=== PATIENT | female | born 1930 | race Two or more races ===

== ENCOUNTER → 2018-05-20 | Outpatient (CLI) | payer MEDICARE, MEDICAID ==
[2018-05-20 10:44] LABS: Basophils # (auto) 0 uL; Basophils % (auto) 0.5 % (0.0-2.0); Eosinophils # (auto) 0 uL; Eosinophils % (auto) 0.4 % (0.0-7.0); Hematocrit 31.7 % (36.0-46.0); Hemoglobin 10.4 g/dL (12.2-16.2); Lymphocytes # (auto) 4.4 uL; Lymphocytes % (auto) 49.1 % (10.0-50.0); Mean Corpuscular Hgb Conc. 32.9 g/dL (32.0-36.0); Mean Corpuscular Volume 88.2 fL (80.0-100.0); Monocytes # (auto) 0.5 uL; Monocytes % (auto) 5.8 % (0.0-12.0); Neutrophils % (auto) 44.2 % (37.0-80.0); Platelet Count (auto) 216 10^3/uL (140-450); Red Blood Cells 3.59 10^6/uL (4.0-5.20); Red Cell Distribution Width 13.9 % (11.8-14.3)
[2018-05-20 10:55] LABS: Urine Bacteria NONE SEEN /hpf (None Seen); Urine Blood 2+ /uL (Negative); Urine Specific Gravity 1.008 (1.001-1.035); Urine WBC 36 /hpf (0 - 5); Urine WBC Clumps PRESENT /hpf (None Seen)
[2018-05-20 11:07] LABS: INR 0.93 (0.9-1.15); Partial Thromboplastin Time 26.9 sec (23.78-33.04)
[2018-05-20 11:16] LABS: Albumin 3.7 g/dL (3.4-5.0); BUN/Creatinine Ratio 39.2; Calcium 8.8 mg/dL (8.5-10.1); Potassium 4.4 mmol/L (3.5-5.1)
[2018-05-20 11:20] LABS: Bilirubin, Total 0.4 mg/dL (0.2-1.0); Total Protein 8.3 g/dL (6.4-8.2)
[2018-05-20 20:09] LABS: Free T4 (Free Thyroxine) 0.97 ng/dL (0.89-1.76)
[2018-05-20 20:52] LABS: Folate (Folic Acid) 18.09 ng/mL (5.38-24)
== END | disposition home or self-care (01) ==
LOC: LAB 10:11
PROVIDERS: ATTEND Internal Medicine
DX: I12.9 Hypertensive chronic kidney disease with stage 1 through stage 4 chronic kidney disease, or unspecified chronic kidney disease (principal); N18.4 Chronic kidney disease, stage 4 (severe); Z79.899 Other long term (current) drug therapy
CPT/HCPCS: 36415; 80053; 80061; 81001; 82607; 82746; 83036; 84439; 84443; 85025; 85610; 85730

== ENCOUNTER → 2018-06-27 | Outpatient (CLI) | payer MEDICARE, MEDICAID ==
[2018-06-27 09:41] LABS: Hematocrit 31.3 % (36.0-46.0); Hemoglobin 10.3 g/dL (12.2-16.2); Mean Corpuscular Hemoglobin 28.8 pg (28.0-32.0); Mean Corpuscular Hgb Conc. 32.8 g/dL (32.0-36.0); Mean Corpuscular Volume 87.6 fL (80.0-100.0); Platelet Count (auto) 261 10^3/uL (140-450); Red Blood Cells 3.57 10^6/uL (4.0-5.20); Red Cell Distribution Width 14.2 % (11.8-14.3); White Blood Cell 9.7 10^3/uL (4.4-10.8)
[2018-06-27 09:51] LABS: Urine Bacteria NONE SEEN /hpf (None Seen); Urine Blood 2+ /uL (Negative); Urine Specific Gravity 1.009 (1.001-1.035); Urine WBC 119 /hpf (0 - 5)
[2018-06-27 09:58] LABS: Albumin 3.6 g/dL (3.4-5.0); BUN/Creatinine Ratio 26.3; Calcium 8.7 mg/dL (8.5-10.1); Potassium 3.7 mmol/L (3.5-5.1); Uric Acid 6.4 mg/dL (2.6-6.0)
[2018-06-27 10:16] LABS: Protein, Urine 8.7 mg/dL (0.0-11.9)
[2018-06-27 11:09] LABS: Basophils # (auto) 0 uL; Basophils % (auto) 0.5 % (0.0-2.0); Eosinophils # (auto) 0.1 uL; Eosinophils % (auto) 0.8 % (0.0-7.0); Lymphocytes # (auto) 3.8 uL; Lymphocytes % (auto) 39.4 % (10.0-50.0); Monocytes # (auto) 0.7 uL; Monocytes % (auto) 7.3 % (0.0-12.0)
== END | disposition home or self-care (01) ==
LOC: LAB 08:06
PROVIDERS: ATTEND Internal Medicine
DX: R80.9 Proteinuria, unspecified (principal); E55.9 Vitamin D deficiency, unspecified; I12.9 Hypertensive chronic kidney disease with stage 1 through stage 4 chronic kidney disease, or unspecified chronic kidney disease; N18.4 Chronic kidney disease, stage 4 (severe)
CPT/HCPCS: 36415; 80048; 80069; 81001; 82306; 82570; 84156; 84550; 85007; 85025; 85027

== ENCOUNTER 2018-07-14 10:58 | Emergency (ER) | payer MEDICARE, MEDICAID ==
[~2018-07-14] VITALS: Ht 149.9 cm; Wt 37.2 kg
[2018-07-14 12:16] VITALS: BP 122/64
== END 2018-07-14 12:53 | disposition home or self-care (01) ==
LOC: EDBD 10:58 → ER 10:58
DX: R53.1 Weakness (principal)
CPT/HCPCS: 93005

== ENCOUNTER 2018-07-22 21:56 | Inpatient (IN) | payer MEDICARE, MEDICAID | END 2018-08-01 15:30 | disposition home or self-care (01) | LOC: OVERFLOW 07-23 02:59 → ER 21:56 → WEST WING 07-23 03:47 | PROC: 0T788DZ Dilation of Bilateral Ureters with Intraluminal Device, Via Natural or Artificial Opening Endoscopic (ICD-10-PCS; principal; 2018-07-31 12:57) | DX: N13.6 Pyonephrosis (principal); R64 Cachexia; E87.1 Hypo-osmolality and hyponatremia; N30.90 Cystitis, unspecified without hematuria; N17.0 Acute kidney failure with tubular necrosis; N18.4 Chronic kidney disease, stage 4 (severe); F03.90 Unspecified dementia, unspecified severity, without behavioral disturbance, psychotic disturbance, mood disturbance, and anxiety; E03.9 Hypothyroidism, unspecified; E86.0 Dehydration; I71.4 Abdominal aortic aneurysm, without rupture; Y84.6 Urinary catheterization as the cause of abnormal reaction of the patient, or of later complication, without mention of misadventure at the time of the procedure ==

== ENCOUNTER → 2018-08-21 | Outpatient (CLI) | payer MEDICARE, MEDICAID ==
[~2018-08-21] MED LIST: LEVO25TA6 PO; MEMA1TAB2 PO; NITR-52 PO
[2018-08-21 12:05] LABS: BUN/Creatinine Ratio 27.5; Calcium 8.9 mg/dL (8.5-10.1); Potassium 3.4 mmol/L (3.5-5.1)
== END | disposition home or self-care (01) ==
LOC: LAB 11:17
PROVIDERS: ATTEND Urology
DX: N13.2 Hydronephrosis with renal and ureteral calculous obstruction (principal)
CPT/HCPCS: 36415; 80048

== ENCOUNTER → 2018-09-09 | Outpatient (CLI) | payer MEDICARE, MEDICAID ==
[2018-09-09 08:16] LABS: Basophils # (auto) 0.1 uL; Basophils % (auto) 0.7 % (0.0-2.0); Eosinophils # (auto) 0.1 uL; Eosinophils % (auto) 1.7 % (0.0-7.0); Hemoglobin 9.6 g/dL (12.2-16.2); Lymphocytes # (auto) 4.6 uL; Lymphocytes % (auto) 53.3 % (10.0-50.0); Mean Corpuscular Hemoglobin 29.6 pg (28.0-32.0); Mean Corpuscular Volume 89.7 fL (80.0-100.0); Monocytes # (auto) 0.6 uL; Monocytes % (auto) 6.9 % (0.0-12.0); Neutrophils # (auto) 3.2 uL; Neutrophils % (auto) 37.4 % (37.0-80.0); Platelet Count (auto) 217 10^3/uL (140-450); Red Blood Cells 3.23 10^6/uL (4.0-5.20); Red Cell Distribution Width 15.8 % (11.8-14.3); White Blood Cell 8.6 10^3/uL (4.4-10.8)
[2018-09-09 08:50] LABS: Urine Blood 1+ /uL (Negative); Urine Specific Gravity 1.013 (1.001-1.035)
[2018-09-09 09:13] LABS: Creatinine, Urine 42 mg/dL (30.0-125.0); Protein, Urine 99.3 mg/dL (0.0-11.9)
[2018-09-09 09:41] LABS: Albumin 3.5 g/dL (3.4-5.0); Calcium 9.8 mg/dL (8.5-10.1); Phosphorus 3.9 mg/dL (2.5-4.90); Potassium 3.7 mmol/L (3.5-5.1)
== END | disposition home or self-care (01) ==
LOC: LAB 07:45
PROVIDERS: ATTEND Internal Medicine Nephrology
DX: E55.9 Vitamin D deficiency, unspecified (principal); M10.9 Gout, unspecified; N39.0 Urinary tract infection, site not specified; N18.3 Chronic kidney disease, stage 3 (moderate); D63.1 Anemia in chronic kidney disease; E21.3 Hyperparathyroidism, unspecified
CPT/HCPCS: 36415; 80069; 81003; 82306; 82570; 83970; 84156; 84550; 85025

== ENCOUNTER 2018-10-13 16:11 | Emergency (ER) | payer MEDICARE, MEDICAID ==
[~2018-10-13] VITALS: Ht 127 cm; Wt 36.7 kg
[2018-10-13 16:31] VITALS: BP 111/62
[2018-10-13 18:00] LABS: Basophils # (auto) 0 uL; Basophils % (auto) 0.4 % (0.0-2.0); Eosinophils # (auto) 0.1 uL; Eosinophils % (auto) 0.8 % (0.0-7.0); Hematocrit 27.9 % (36.0-46.0); Hemoglobin 9.3 g/dL (12.2-16.2); Lymphocytes # (auto) 4.2 uL; Lymphocytes % (auto) 52.3 % (10.0-50.0); Mean Corpuscular Hemoglobin 30.3 pg (28.0-32.0); Mean Corpuscular Hgb Conc. 33.5 g/dL (32.0-36.0); Mean Corpuscular Volume 90.4 fL (80.0-100.0); Monocytes # (auto) 0.6 uL; Monocytes % (auto) 7.3 % (0.0-12.0); Neutrophils # (auto) 3.1 uL; Neutrophils % (auto) 39.2 % (37.0-80.0); Platelet Count (auto) 231 10^3/uL (140-450); Red Blood Cells 3.08 10^6/uL (4.0-5.20); Red Cell Distribution Width 14.1 % (11.8-14.3)
[2018-10-13 18:07] LABS: Albumin 3.1 g/dL (3.4-5.0); BUN/Creatinine Ratio 20.2; Calcium 8.8 mg/dL (8.5-10.1); Potassium 3.8 mmol/L (3.5-5.1)
[2018-10-13 18:10] LABS: Bilirubin, Total 0.4 mg/dL (0.2-1.0); Total Protein 8.2 g/dL (6.4-8.2)
== END 2018-10-13 19:25 | disposition left against medical advice (07) ==
LOC: ER 16:22
DX: N18.9 Chronic kidney disease, unspecified (principal); Z79.899 Other long term (current) drug therapy
CPT/HCPCS: 36415; 74176; 80053; 83735; 85025; 93005; 94761

== ENCOUNTER → 2018-10-13 | Outpatient (CLI) | payer MEDICARE, MEDICAID | END | disposition home or self-care (01) | LOC: LAB 15:51 | PROVIDERS: ATTEND Urology | DX: N13.2 Hydronephrosis with renal and ureteral calculous obstruction (principal) | CPT/HCPCS: 36415; 84132 ==

== ENCOUNTER → 2018-10-14 | Outpatient (CLI) | payer MEDICARE, MEDICAID ==
[~2018-10-14] MED LIST changes: +FUROSEMIDE 40 MG/4 ML VIAL IV ONE; +FUROSEMIDE 40 MG/4 ML VIAL ONE
== END | disposition home or self-care (01) ==
LOC: XY 08:28
PROVIDERS: ATTEND Urology
DX: N13.2 Hydronephrosis with renal and ureteral calculous obstruction (principal)
CPT/HCPCS: 78707; A9562; J1940

== ENCOUNTER 2018-11-27 07:21 | Day surgery (SDC) | payer MEDICARE, MEDICAID ==
[2018-11-25 12:33] LABS: INR < 0.93 (0.9-1.15); Partial Thromboplastin Time 26.5 sec (23.64-32.05)
[2018-11-25 12:34] LABS: Basophils # (auto) 0 uL; Basophils % (auto) 0.4 % (0.0-2.0); Eosinophils # (auto) 0 uL; Eosinophils % (auto) 0.4 % (0.0-7.0); Hematocrit 27.9 % (36.0-46.0); Hemoglobin 9.3 g/dL (12.2-16.2); Lymphocytes # (auto) 3.8 uL; Lymphocytes % (auto) 51.5 % (10.0-50.0); Mean Corpuscular Hemoglobin 30.2 pg (28.0-32.0); Mean Corpuscular Hgb Conc. 33.3 g/dL (32.0-36.0); Mean Corpuscular Volume 90.6 fL (80.0-100.0); Monocytes # (auto) 0.5 uL; Monocytes % (auto) 6.8 % (0.0-12.0); Neutrophils % (auto) 40.9 % (37.0-80.0); Platelet Count (auto) 222 10^3/uL (140-450); Red Blood Cells 3.07 10^6/uL (4.0-5.20); Red Cell Distribution Width 13.9 % (11.8-14.3); White Blood Cell 7.3 10^3/uL (4.4-10.8)
[2018-11-25 12:49] LABS: Urine Bacteria NONE SEEN /hpf (None Seen); Urine Blood 2+ /uL (Negative); Urine Specific Gravity 1.013 (1.001-1.035); Urine WBC 870 /hpf (0 - 5); Urine WBC Clumps PRESENT /hpf (None Seen)
[2018-11-25 13:10] LABS: Albumin 3.2 g/dL (3.4-5.0); Calcium 8.8 mg/dL (8.5-10.1)
[2018-11-25 13:14] LABS: BUN/Creatinine Ratio 19.8; Bilirubin, Total 0.3 mg/dL (0.2-1.0); Total Protein 8.1 g/dL (6.4-8.2)
[~2018-11-27] VITALS: Ht 144.8 cm; Wt 36.3 kg
[~2018-11-27 07:21] MED LIST changes: +DONE5TAB31 PO; -FUROSEMIDE 40 MG/4 ML VIAL IV ONE; -FUROSEMIDE 40 MG/4 ML VIAL ONE; -NITR-52 PO
[2018-11-27] MEDS ORDERED: CIPROFLOXACIN 400MG/200ML 200 ML IV ONE (09:01)
[2018-11-27] MEDS ORDERED: IOHEXOL 300 MG/ML 100ML BOTTLE IJ ONE (09:37)
[2018-11-27] MEDS ORDERED: LIDOCAINE HCL 2% TOP JELLY 5ML TOP ONE (09:55)
[2018-11-27] MEDS ORDERED: LIDOCAINE 2% (LOCAL ANESTH.) PF 5ml SDV ONE (09:55)
[2018-11-27] MEDS ORDERED: ETOMIDATE (2MG/ML) 20ML VIAL IV ONE (09:56)
[2018-11-27] MEDS ORDERED: fentaNYL CITRATE 100 MCG/2 ML VL ONE (10:11)
[2018-11-27] MEDS ORDERED: METOCLOPRAMIDE HCL 5MG/ml INJ 2ml VIAL ONE (10:14)
[2018-11-27] MEDS ORDERED: ONDANSETRON HCL 4 MG/2 ML VIAL IV PRN (10:15)
[2018-11-27] MEDS ORDERED: HYDROmorphone HCL 2 MG/ML VL IV PRN (10:15)
[2018-11-27] MEDS ORDERED: NALOXONE HCL 0.4 MG/ML VIAL IV PRN (10:15)
[2018-11-27] MEDS ORDERED: SODIUM CHLORIDE LOCK 10 ML ONE (10:28)
[2018-11-27] MEDS ORDERED: ePHEDrine SULFATE 50 MG/ML AMP ONE (10:28)
[2018-11-27 11:59] VITALS: BP 126/63
== END 2018-11-27 12:19 | disposition home or self-care (01) ==
LOC: SUR 07:21
PROVIDERS: ATTEND Urology
DX: N13.1 Hydronephrosis with ureteral stricture, not elsewhere classified (principal); K27.9 Peptic ulcer, site unspecified, unspecified as acute or chronic, without hemorrhage or perforation; I12.9 Hypertensive chronic kidney disease with stage 1 through stage 4 chronic kidney disease, or unspecified chronic kidney disease; N18.4 Chronic kidney disease, stage 4 (severe); D64.9 Anemia, unspecified; E07.9 Disorder of thyroid, unspecified; M19.90 Unspecified osteoarthritis, unspecified site; Z79.899 Other long term (current) drug therapy
CPT/HCPCS: 36415; 52332; 74018; 76001; 80053; 81001; 85025; 85610; 85730; C1769; C2617; J0744; J2001; J2765; J3010; J7030; Q9967

== ENCOUNTER 2018-11-30 19:23 | Emergency (ER) | payer MEDICARE, MEDICAID ==
[~2018-11-30] VITALS: Ht 149.9 cm; Wt 37.4 kg
[2018-11-30 20:07] VITALS: BP 135/73
[2018-11-30 20:21] LABS: Hematocrit 30.8 % (36.0-46.0); Hemoglobin 10.2 g/dL (12.2-16.2); Mean Corpuscular Hemoglobin 30.1 pg (28.0-32.0); Mean Corpuscular Volume 90.9 fL (80.0-100.0); Platelet Count (auto) 231 10^3/uL (140-450); Red Blood Cells 3.39 10^6/uL (4.0-5.20); Red Cell Distribution Width 13.8 % (11.8-14.3); White Blood Cell 10.7 10^3/uL (4.4-10.8)
[2018-11-30 20:30] LABS: Basophils % (manual) 0 (0.0-2.0); Blast Cells 0; Metamyelocytes % 0; Myelocytes % 0; Promyelocytes % 0
[2018-11-30 20:32] LABS: INR 0.93 (0.9-1.15); Partial Thromboplastin Time 25.9 sec (23.64-32.05)
[2018-11-30 20:53] LABS: Albumin 3.4 g/dL (3.4-5.0); Calcium 9.2 mg/dL (8.5-10.1)
[2018-11-30 20:58] LABS: BUN/Creatinine Ratio 17.5; Bilirubin, Total 0.3 mg/dL (0.2-1.0); Total Protein 8.5 g/dL (6.4-8.2)
[2018-11-30 21:12] LABS: Urine Bacteria FEW /hpf (None Seen); Urine Blood 1+ /uL (Negative); Urine Hyaline Cast FEW /lpf (0 - 2); Urine Specific Gravity 1.004 (1.001-1.035); Urine WBC 110 /hpf (0 - 5)
[2018-11-30 21:26] LABS: Band Neutrophils % (manual) 1; Eosinophils % (manual) 1 (0-7); Lymphocytes % (manual) 65 (10.0-50.0); Monocytes % (manual) 5 (0-12); Reactive Lymphocytes 2
== END 2018-11-30 21:12 | disposition left against medical advice (07) ==
LOC: ER 19:27
DX: R53.1 Weakness (principal); Z53.21 Procedure and treatment not carried out due to patient leaving prior to being seen by health care provider
CPT/HCPCS: 36415; 80053; 81001; 82962; 85007; 85027; 85610; 85730

== ENCOUNTER 2018-12-14 11:20 | Emergency (ER) | payer MEDICARE, MEDICAID ==
[~2018-12-14] VITALS: Ht 149.9 cm; Wt 36.3 kg
[2018-12-14 12:13] LABS: Basophils # (auto) 0 uL; Basophils % (auto) 0.5 % (0.0-2.0); Eosinophils # (auto) 0 uL; Eosinophils % (auto) 0.5 % (0.0-7.0); Hemoglobin 10.8 g/dL (12.2-16.2); Lymphocytes # (auto) 3.6 uL; Mean Corpuscular Hemoglobin 29.8 pg (28.0-32.0); Mean Corpuscular Hgb Conc. 33.8 g/dL (32.0-36.0); Mean Corpuscular Volume 88.4 fL (80.0-100.0); Monocytes # (auto) 0.4 uL; Monocytes % (auto) 5.6 % (0.0-12.0); Neutrophils # (auto) 3.3 uL; Neutrophils % (auto) 44.4 % (37.0-80.0); Nucleated Red Blood Cells % 0.1 %; Platelet Count (auto) 221 10^3/uL (140-450); Red Blood Cells 3.62 10^6/uL (4.0-5.20); Red Cell Distribution Width 13.9 % (11.8-14.3); White Blood Cell 7.4 10^3/uL (4.4-10.8)
[2018-12-14 12:15] LABS: Urine Amorphous Crystal FEW /hpf (None Seen); Urine Bacteria MOD /hpf (None Seen); Urine Blood 1+ /uL (Negative); Urine Specific Gravity 1.005 (1.001-1.035); Urine WBC 185 /hpf (0 - 5)
[2018-12-14 12:40] LABS: Alanine Aminotransferase 16 U/L (13-56); Albumin 3.6 g/dL (3.4-5.0); Anion Gap 7 (5-15); Aspartate Aminotransferase 20 U/L (15-37); BUN/Creatinine Ratio 23.1; Blood Urea Nitrogen 49 mg/dL (7-18); Calcium 9.2 mg/dL (8.5-10.1); Carbon Dioxide 25 mmol/L (21-32); Chloride 103 mmol/L (98-107); GFR African American 28 mL/min; GFR Non-African American 23 mL/min; Glucose 103 mg/dL (74-106); Potassium 3.1 mmol/L (3.5-5.1); Sodium 135 mmol/L (136-145)
[2018-12-14 12:45] LABS: Alkaline Phosphatase 76 U/L (45-117); Bilirubin, Total 0.4 mg/dL (0.2-1.0); Total Protein 8.8 g/dL (6.4-8.2)
[2018-12-14] MEDS ORDERED: POTASSIUM EFFERVESENT TAB 25 MEQ PO ONE (14:45)
[2018-12-14] MEDS ORDERED: cefTRIAXone 1GM/50ML D5W 50 ML IV ONE (14:45)
[2018-12-14 16:46] VITALS: BP 97/43
== END 2018-12-14 16:57 | disposition home or self-care (01) ==
LOC: ER 11:25
DX: N39.0 Urinary tract infection, site not specified (principal); I12.9 Hypertensive chronic kidney disease with stage 1 through stage 4 chronic kidney disease, or unspecified chronic kidney disease; N18.9 Chronic kidney disease, unspecified
CPT/HCPCS: 36415; 71045; 80053; 81001; 84484; 85025; 93005; 96365; 99284; J0696

== ENCOUNTER 2018-12-16 09:42 | Emergency (ER) | payer MEDICARE, MEDICAID ==
[~2018-12-16] VITALS: Ht 144.8 cm; Wt 36.3 kg
[2018-12-16] MEDS ORDERED: SODIUM CHLORIDE 0.9% 1,000 ML IV ONE (11:11)
[2018-12-16 12:47] LABS: Urine Bacteria FEW /hpf (None Seen); Urine Blood TRACE /uL (Negative); Urine Budding Yeast FEW /hpf (None Seen); Urine Specific Gravity 1.004 (1.001-1.035); Urine WBC 128 /hpf (0 - 5)
[2018-12-16 13:03] VITALS: BP 117/59
== END 2018-12-16 14:18 | disposition home or self-care (01) ==
LOC: ER 09:43
DX: F03.90 Unspecified dementia, unspecified severity, without behavioral disturbance, psychotic disturbance, mood disturbance, and anxiety (principal); N39.0 Urinary tract infection, site not specified; I12.9 Hypertensive chronic kidney disease with stage 1 through stage 4 chronic kidney disease, or unspecified chronic kidney disease; N18.9 Chronic kidney disease, unspecified; E07.9 Disorder of thyroid, unspecified; Z79.899 Other long term (current) drug therapy
CPT/HCPCS: 70450; 81001; 93005; 96360; 99284; J7030

== ENCOUNTER 2018-12-21 05:54 | Inpatient (IN) | payer MEDICARE, MEDICAID ==
[~2018-12-21] VITALS: Ht 139.7 cm; Wt 38.6 kg
[2018-12-21 06:42] LABS: Hematocrit 30.7 % (36.0-46.0); Hemoglobin 10.7 g/dL (12.2-16.2); Mean Corpuscular Hemoglobin 30.9 pg (28.0-32.0); Mean Corpuscular Hgb Conc. 34.7 g/dL (32.0-36.0); Mean Corpuscular Volume 88.9 fL (80.0-100.0); Platelet Count (auto) 187 10^3/uL (140-450); Red Blood Cells 3.45 10^6/uL (4.0-5.20); Red Cell Distribution Width 13.6 % (11.8-14.3); White Blood Cell 9.7 10^3/uL (4.4-10.8)
[2018-12-21 06:47] LABS: Basophils % (manual) 0 (0.0-2.0); Blast Cells 0; Metamyelocytes % 0; Myelocytes % 0; Promyelocytes % 0; Reactive Lymphocytes 0
[2018-12-21 07:04] LABS: Alanine Aminotransferase 12 U/L (13-56); Albumin 3.5 g/dL (3.4-5.0); Anion Gap 11 (5-15); BUN/Creatinine Ratio 19.6; Blood Urea Nitrogen 36 mg/dL (7-18); Calcium 8.7 mg/dL (8.5-10.1); Carbon Dioxide 21 mmol/L (21-32); Chloride 92 mmol/L (98-107); GFR African American 33 mL/min; GFR Non-African American 28 mL/min; Glucose 107 mg/dL (74-106); Magnesium 2.2 mg/dL (1.6-2.6); Potassium 4.1 mmol/L (3.5-5.1); Sodium 124 mmol/L (136-145)
[2018-12-21 07:16] LABS: Band Neutrophils % (manual) 3; Eosinophils % (manual) 2 (0-7); Lymphocytes % (manual) 53 (10.0-50.0); Monocytes % (manual) 17 (0-12)
[2018-12-21 07:17] LABS: Alkaline Phosphatase 79 U/L (45-117); Aspartate Aminotransferase 21 U/L (15-37); Bilirubin, Total 0.6 mg/dL (0.2-1.0); Total Protein 8.1 g/dL (6.4-8.2)
[2018-12-21 10:15] LABS: Urine Bacteria NONE SEEN /hpf (None Seen); Urine Blood Negative /uL (Negative); Urine Specific Gravity 1.004 (1.001-1.035); Urine WBC 17 /hpf (0 - 5)
[2018-12-21] MEDS: cefTRIAXone 1GM/50ML D5W 50 ML IV ONE ×2 (16:01→16:02)
[2018-12-21] MEDS: SODIUM CHLORIDE 0.9% 1,000 ML IV ONE ×2 (16:01→16:02)
[2018-12-21] MEDS ORDERED: ACETAMINOPHEN 500 MG TAB PO PRN (16:30)
[2018-12-21] MEDS ORDERED: ONDANSETRON HCL 4 MG/2 ML VIAL IV PRN (16:30)
[2018-12-21] MEDS ORDERED: MORPHINE SULF INJ 2 MG/ML SYRINGE 1ML IV PRN (16:30)
[2018-12-21] MEDS ORDERED: NITROGLYCERIN 0.4 MG SL TAB SL PRN (16:30)
[2018-12-21] MEDS ORDERED: TEMAZEPAM 15 MG CAP PO PRN (16:30)
[2018-12-21] MEDS ORDERED: traMADol HCL 50 MG TAB PO PRN (16:30)
[2018-12-21] MEDS: SODIUM CHLORIDE 0.9% 1,000 ML IV SCH (17:14)
--- NOTE | 2018-12-21 17:36 | NUR ---
Telemetry admit from ER [facility] admitted to Telemetry unit. Patient oriented to Dwayne Smalls, primary RN, unit, room, bed, and unit policies regarding patient care and visiting hours. Patient is Luxembourgish speaking. Patient now on continuous telemetry monitoring, tele box #6 and telemetry reading on arrival to unit is [id number]. Patient placed on bedside oxygen, weighed by bedscale and encouraged to call if they need something. All questions and concerns addressed, patient verbalized understanding.
[2018-12-21 17:56] VITALS: BP 140/77
[2018-12-21 18:00] VITALS: BP 140/77
--- NOTE | 2018-12-21 19:20 | NUR ---
Opening Shift Note Report received from day shift RN. Assumed care of patient. Patient awake and alert x4. No S/S of distress/SOB noted and patient denies pain at this time. Bed locked and left in the lowest position. Call light left within reach. Instructed on POC and to call for assist PRN, will continue to monitor for changes Q1hr and PRN.
[2018-12-21 22:00] VITALS: BP 120/66
[2018-12-22] MEDS: SODIUM CHLORIDE 0.9% 1,000 ML IV SCH ×2 (04:09→12:26)
[2018-12-22 04:42] VITALS: BP 113/72
[2018-12-22 06:12] LABS: Albumin 3.1 g/dL (3.4-5.0); BUN/Creatinine Ratio 18.2; Calcium 8.6 mg/dL (8.5-10.1); Potassium 4.3 mmol/L (3.5-5.1)
[2018-12-22 06:14] LABS: Bilirubin, Total 0.3 mg/dL (0.2-1.0); Total Protein 7.5 g/dL (6.4-8.2)
--- NOTE | 2018-12-22 07:35 | NUR ---
Opening Shift Note Assumed care of patient, awake and alert. No S/S of distress/SOB or pain.Bed in lowest position, breaks locked side rails up x2, call light with in reach. Instructed on POC and to call for assist PRN, will continue to monitor for changes Q1hr and PRN.
[2018-12-22 08:00] VITALS: BP 124/71
[2018-12-22 08:42] VITALS: BP 124/71
--- NOTE | 2018-12-22 09:00 | NUR ---
Family at bedside.
[2018-12-22] MEDS: PANTOPRAZOLE 40 MG TAB PO SCH (09:11)
[2018-12-22] MEDS: cefTRIAXone 1GM/50ML D5W 50 ML IV SCH (09:11)
[2018-12-22 14:00] VITALS: BP 120/62
[2018-12-22 17:29] VITALS: BP 125/65
--- NOTE | 2018-12-22 18:00 | NUR ---
Family at bedside, per daughter wants MD informed that patient takes Donepezil 5mg and Levothyroxine 25mcg and would like the medication continued at the hospital.
--- NOTE | 2018-12-22 19:30 | NUR ---
Opening Assumed care of patient, awake and alert. No S/S of distress/SOB or pain. Insructed on POC and to callfor assist PRN, will continue to monitor for changes Q1hr and PRN. Family at bedside. Fall and safety precautions in place. Call light within reach.
--- NOTE | 2018-12-22 20:40 | NUR ---
URINE SAMPLE Urine sample collected and sent to lab via bullet
[2018-12-22 21:39] VITALS: BP 148/80
[2018-12-23] MEDS: SODIUM CHLORIDE 0.9% 1,000 ML IV SCH ×3 (00:40→18:37)
[2018-12-23 05:39] VITALS: BP 145/76
--- NOTE | 2018-12-23 08:00 | NUR ---
RECEIVED PATIENT ALERT AND ORIENTED X4, DIVE[place] SPEAKING, HARD OF HEARING, NOT IN DISTRESS, CLEAR LS IN BILATERAL LUNG SOUNDS, RR=18 SAT=95, DEEP BREATHING AND COUGHING ENCOURAGED, DEMONSTRATED WELL, DENIED SOB AND CHEST PAIN AT THIS MOMENT, ABDOMEN SOFT WITH ACTIVE BS, LAST BM=12/22/18 REPORTED, TOLERATED BREAKFAST TRAY WELL, AMBULATED TO BR AND BACK TO BED, SKIN INTACT WARM TO TOUCH, MODERATE GENERALIZED WEAKNESS NOTED, RADIAL AND PEDAL PULSES PALPABLE, CAP REFILL<3 SECONDS, RESTING ON BED, DENIED PAIN, HEAD OF BED ELEVATED, BED ON LOWER POSITION, RAILS UP X2, CALL LIGHT ON REACH, PENDING UROLOGY CONSULT, WILL CONTINUE MONITORING.
[2018-12-23 09:00] VITALS: BP 128/59
[2018-12-23] MEDS: PANTOPRAZOLE 40 MG TAB PO SCH (09:37)
[2018-12-23] MEDS: cefTRIAXone 1GM/50ML D5W 50 ML IV SCH (09:37)
[2018-12-23 11:42] LABS: Basophils # (auto) 0 uL; Eosinophils # (auto) 0 uL; Hemoglobin 8.8 g/dL (12.2-16.2)
[2018-12-23 11:46] LABS: Basophils % (auto) 0.8 % (0.0-2.0); Eosinophils % (auto) 0.9 % (0.0-7.0); Hematocrit 25.8 % (36.0-46.0); Lymphocytes # (auto) 1.9 uL; Lymphocytes % (auto) 35.8 % (10.0-50.0); Mean Corpuscular Hemoglobin 31.2 pg (28.0-32.0); Mean Corpuscular Hgb Conc. 34.2 g/dL (32.0-36.0); Mean Corpuscular Volume 91.2 fL (80.0-100.0); Monocytes # (auto) 0.5 uL; Monocytes % (auto) 8.5 % (0.0-12.0); Neutrophils # (auto) 2.9 uL; Platelet Count (auto) 136 10^3/uL (140-450); Red Blood Cells 2.83 10^6/uL (4.0-5.20); Red Cell Distribution Width 13.7 % (11.8-14.3); White Blood Cell 5.3 10^3/uL (4.4-10.8)
--- NOTE | 2018-12-23 11:56 | NUR ---
OUT OF BED AND AMBULATED USING WALKER AROUND THE UNIT X2 WITH THE FAMILY, BACK TO THE BED, TOLERATED WELL, RESTING ON BED AT THIS TIME, WILL CONTINUE MONITORING.
[2018-12-23 12:15] LABS: BUN/Creatinine Ratio 16.6; Calcium 7.9 mg/dL (8.5-10.1); Potassium 3.7 mmol/L (3.5-5.1)
[2018-12-23 13:00] VITALS: BP 120/67
--- NOTE | 2018-12-23 14:30 | NUR ---
assessment re: ss consult Patient is a 88 year old female who is alert and oriented and Mozambican speaking. Patients daughter Gloria translated for us. Prior to admission patient lived home with her daughter Gloria and functioned with assistance. Per patient she will return home to her prior living arrangements post discharge and Gloria will transport her home. Per patient Gloria assist her at home with bathing, cleaning, errands and cooking. Patient informed me she feels safe returning home on discharge. Patient and Gloria informed me patient is on service with [employer]. Patient and Gloria informed me they want to resume on discharge with [employer] for PT, vitals, and med management. I informed Gloria patient has a ss consult for caregiver fatigue. Gloria informed me she is fine and patient is well taken care of. I informed patient she has a right to speak to a social work manager regarding all care. I informed patient she has a right to participate in any and all discharge planning. Patient is aware of visiting hours on the hospital floor. I informed patient she has a right to privacy. Patient does not have a POA and advanced directive. I have offered patient information on POA and advanced directives. I informed the patient the advantages and benefits of having an Advanced Directive. Patient verbalized understanding and agreed to discharge plan. Addendum: 12/23/18 at 1434 by Flor Johnson Amended: Links added.
--- NOTE | 2018-12-23 16:00 | NUR ---
PT DECLINED P.T. BECAUSE OF A HEADACHE.
[2018-12-23 17:00] VITALS: BP 137/77
--- NOTE | 2018-12-23 19:12 | NUR ---
NOT IN DISTRESS, DENIED PAIN, DAUGHTER AT BED SIDE, TOLERATED DINNER TRAY 100%, RESTING ON BED, REPORT WAS GIVEN TO THE PACKING AND SHIPPING CLERK RN.
[2018-12-23 22:00] VITALS: BP 122/60
[2018-12-24 05:00] VITALS: BP 117/57
[2018-12-24] MEDS: SODIUM CHLORIDE 0.9% 1,000 ML IV SCH ×2 (05:27→14:26)
--- NOTE | 2018-12-24 08:00 | NUR ---
ASSESSMENT NOTE PATIENT IS ALERT ORIENTED X4, RESTING IN BED COMFORTABLY, NO DISTRESS NOTED, ABLE TO SELF REPOSITION NEEDED, FALL RISK PRECAUTIONS, CALL LIGHT WITHIN REACH
[2018-12-24 08:46] VITALS: BP 126/52
[2018-12-24] MEDS: cefTRIAXone 1GM/50ML D5W 50 ML IV SCH (09:15)
[2018-12-24] MEDS: PANTOPRAZOLE 40 MG TAB PO SCH (09:15)
--- NOTE | 2018-12-24 10:00 | NUR ---
FAMILY REPORT THAT THEY WALKED PATIENT THIS MORNING.
--- NOTE | 2018-12-24 10:55 | NUR ---
DR BILLY AT BED SIDE DISCUSSING THE DISCHARGE PLANING WITH PATIENT'S DAUGHTER TO TRANSFER PT TO [facility] FOR REHABILITATION, FAMILY VERBALIS UNDERSTANDING
[2018-12-24 13:00] VITALS: BP 114/55
--- NOTE | 2018-12-24 15:16 | NUR ---
REPORT GIVEN TO [facility] SPOKE WITH CHICHI Falcon RN ALL PT UPDATE GIVEN TO HER ALONG WITH OUT PHONE NUMBER, ENCOURAGED O CALL US WITH ANY QUESTIONS.
--- NOTE | 2018-12-24 15:57 | NUR ---
Discharge planning per consult, patient has orders to dc to SNF. Upon encounter for choice letter, patient was unable to sign however her daughter who was at bedside signed on her behalf the choice letter; she chose [facility]. Referral was faxed. Placed a follow up call, spoke to Rolando and was advised that they will accept this patient into room [address] Benson. Transportation was arranged through [facility] and they will come to pick the patient up between 4:30-5:30pm via [employer]. Daughter and nurse Ashly were advised of the dc plan. Daughter was also provided information to the facility. Addendum: 12/24/18 at 1609 by JANNET HANNA Amended: Links added.
[2018-12-24 16:28] VITALS: BP 126/84
--- NOTE | 2018-12-24 17:35 | NUR ---
Discharge instructions given as ordered. Encourage to follow up with PMD as instructed. All questions and concerns addressed. Patient verbalized understanding. Medication reconciliation form completed and copy given to patient.IV removed with catheter intact, pressure dressing applied, . Telemetry unit returned to ICU. Patient taken to vehicle via gurney with general transportation with all personal belongings, accompanied by staff and family member. No distress noted at time of departure.patient daughter at her side with all the belonging
== END 2018-12-24 17:30 | DRG 690 ==
LOC: ER 05:54 → EDUNIT# 05:54 → TELE 05:55 → TELE-EAST 17:36
PROVIDERS: ADMIT Internal Medicine; ATTEND Internal Medicine
DX: N13.6 Pyonephrosis (principal); E87.1 Hypo-osmolality and hyponatremia; N18.4 Chronic kidney disease, stage 4 (severe); F03.90 Unspecified dementia, unspecified severity, without behavioral disturbance, psychotic disturbance, mood disturbance, and anxiety; E03.9 Hypothyroidism, unspecified; K59.00 Constipation, unspecified; D50.9 Iron deficiency anemia, unspecified; I70.90 Unspecified atherosclerosis; I12.9 Hypertensive chronic kidney disease with stage 1 through stage 4 chronic kidney disease, or unspecified chronic kidney disease; K57.30 Diverticulosis of large intestine without perforation or abscess without bleeding; R62.7 Adult failure to thrive; Z87.440 Personal history of urinary (tract) infections; Z90.49 Acquired absence of other specified parts of digestive tract; Z90.710 Acquired absence of both cervix and uterus
CPT/HCPCS: 36415; 74176; 80048; 80053; 81001; 83605; 83735; 84439; 84443; 84484; 85007; 85025; 85027; 87040; 87086; 93005; 94761; 96365; 96366; G0378; J0696

== ENCOUNTER → 2019-01-22 | Outpatient (CLI) | payer MEDICARE, MEDICAID ==
[2019-01-22 16:31] LABS: Albumin 3.4 g/dL (3.4-5.0); BUN/Creatinine Ratio 21.4; Calcium 8.7 mg/dL (8.5-10.1); Phosphorus 3.9 mg/dL (2.5-4.90); Potassium 3.9 mmol/L (3.5-5.1)
== END | disposition home or self-care (01) ==
LOC: LAB 15:46
PROVIDERS: ATTEND Internal Medicine Nephrology
DX: N18.3 Chronic kidney disease, stage 3 (moderate) (principal); N13.30 Unspecified hydronephrosis; F03.90 Unspecified dementia, unspecified severity, without behavioral disturbance, psychotic disturbance, mood disturbance, and anxiety; I70.0 Atherosclerosis of aorta; Z90.49 Acquired absence of other specified parts of digestive tract; Z90.710 Acquired absence of both cervix and uterus
CPT/HCPCS: 36415; 80069

== ENCOUNTER → 2019-04-21 | Outpatient (CLI) | payer MEDICARE ==
[~2019-04-21] MED LIST changes: -MEMA1TAB2 PO; +MEMA1TAB5 PO
[2019-04-21 08:37] LABS: Urine Blood 1+ /uL (Negative); Urine Specific Gravity 1.013 (1.001-1.035)
[2019-04-21 08:38] LABS: Basophils # (auto) 0 uL; Basophils % (auto) 0.5 % (0.0-2.0); Eosinophils # (auto) 0.1 uL; Eosinophils % (auto) 1.4 % (0.0-7.0); Hematocrit 30.3 % (36.0-46.0); Hemoglobin 10.1 g/dL (12.2-16.2); Lymphocytes # (auto) 3.5 uL; Lymphocytes % (auto) 50.7 % (10.0-50.0); Mean Corpuscular Hemoglobin 30.6 pg (28.0-32.0); Mean Corpuscular Hgb Conc. 33.4 g/dL (32.0-36.0); Mean Corpuscular Volume 91.7 fL (80.0-100.0); Monocytes # (auto) 0.5 uL; Monocytes % (auto) 7.8 % (0.0-12.0); Neutrophils # (auto) 2.8 uL; Neutrophils % (auto) 39.6 % (37.0-80.0); Nucleated Red Blood Cells % 0.1 %; Platelet Count (auto) 155 10^3/uL (140-450); Red Cell Distribution Width 13.8 % (11.8-14.3)
[2019-04-21 08:58] LABS: Creatinine, Urine 27 mg/dL (30.0-125.0); Protein, Urine 74.6 mg/dL (0.0-11.9)
[2019-04-21 08:59] LABS: Albumin 3.6 g/dL (3.4-5.0); BUN/Creatinine Ratio 26.4; Phosphorus 3.4 mg/dL (2.5-4.90); Uric Acid 6.3 mg/dL (2.6-6.0)
== END | disposition home or self-care (01) ==
LOC: EDBD → LAB 08:18
PROVIDERS: ATTEND Internal Medicine Nephrology
DX: E55.9 Vitamin D deficiency, unspecified (principal); R80.9 Proteinuria, unspecified; M10.9 Gout, unspecified; N18.3 Chronic kidney disease, stage 3 (moderate); D63.1 Anemia in chronic kidney disease; N39.0 Urinary tract infection, site not specified; E21.3 Hyperparathyroidism, unspecified
CPT/HCPCS: 36415; 80069; 81003; 82306; 82570; 83970; 84156; 84550; 85025

== ENCOUNTER 2019-08-19 17:30 | Emergency (ER) | payer MEDICARE, MEDICAID ==
[~2019-08-19] VITALS: Ht 162.6 cm; Wt 38.6 kg
[2019-08-19 19:13] LABS: Hematocrit 29.9 % (36.0-46.0); Mean Corpuscular Hemoglobin 30.6 pg (28.0-32.0); Mean Corpuscular Hgb Conc. 33.4 g/dL (32.0-36.0); Mean Corpuscular Volume 91.7 fL (80.0-100.0); Platelet Count (auto) 188 10^3/uL (140-450); Red Blood Cells 3.26 10^6/uL (4.0-5.20); Red Cell Distribution Width 13.5 % (11.8-14.3); White Blood Cell 8.1 10^3/uL (4.4-10.8)
[2019-08-19 19:27] LABS: Urine Bacteria FEW /hpf (None Seen); Urine Blood TRACE /uL (Negative); Urine Specific Gravity 1.006 (1.001-1.035); Urine WBC 83 /hpf (0 - 5)
[2019-08-19 19:28] LABS: Band Neutrophils % (manual) 0; Basophils % (manual) 0 (0.0-2.0); Blast Cells 0; Eosinophils % (manual) 0 (0-7); Metamyelocytes % 0; Myelocytes % 0; Promyelocytes % 0; Reactive Lymphocytes 0
[2019-08-19 19:32] LABS: BUN/Creatinine Ratio 20.5; Calcium 8.7 mg/dL (8.5-10.1); Potassium 3.8 mmol/L (3.5-5.1)
[2019-08-19 19:41] LABS: Lymphocytes % (manual) 67 (10.0-50.0); Monocytes % (manual) 5 (0-12)
[2019-08-19] MEDS ORDERED: levoFLOXacin 250 MG TAB PO ONE (20:00)
[2019-08-19 20:23] VITALS: BP 127/72
== END 2019-08-19 20:25 | disposition home or self-care (01) ==
LOC: ER 17:30 → EDBD 17:30 → ER 20:25
DX: N39.0 Urinary tract infection, site not specified (principal); D64.9 Anemia, unspecified; I12.9 Hypertensive chronic kidney disease with stage 1 through stage 4 chronic kidney disease, or unspecified chronic kidney disease; N18.4 Chronic kidney disease, stage 4 (severe); R74.8 Abnormal levels of other serum enzymes
CPT/HCPCS: 36415; 80048; 81001; 84439; 84443; 85007; 85027; 87086; 87088; 87186

== ENCOUNTER → 2019-09-08 | Outpatient (CLI) | payer MEDICARE, MEDICAID ==
[2019-09-08 08:46] LABS: Hematocrit 28.3 % (36.0-46.0); Hemoglobin 9.4 g/dL (12.2-16.2); Mean Corpuscular Hemoglobin 30.5 pg (28.0-32.0); Mean Corpuscular Hgb Conc. 33.3 g/dL (32.0-36.0); Mean Corpuscular Volume 91.8 fL (80.0-100.0); Platelet Count (auto) 160 10^3/uL (140-450); Red Blood Cells 3.08 10^6/uL (4.0-5.20); Red Cell Distribution Width 13.5 % (11.8-14.3); White Blood Cell 7.5 10^3/uL (4.4-10.8)
[2019-09-08 08:53] LABS: Band Neutrophils % (manual) 0; Basophils % (manual) 0 (0.0-2.0); Blast Cells 0; Eosinophils % (manual) 0 (0-7); Metamyelocytes % 0; Myelocytes % 0; Promyelocytes % 0; Reactive Lymphocytes 0
[2019-09-08 09:07] LABS: Albumin 3.6 g/dL (3.4-5.0); Calcium 8.9 mg/dL (8.5-10.1); Potassium 3.3 mmol/L (3.5-5.1)
[2019-09-08 09:11] LABS: BUN/Creatinine Ratio 20.7; Phosphorus 3.7 mg/dL (2.5-4.90); Uric Acid 6.6 mg/dL (2.6-6.0)
[2019-09-08 10:00] LABS: Lymphocytes % (manual) 71 (10.0-50.0); Monocytes % (manual) 3 (0-12)
[2019-09-08 11:00] LABS: Urine Blood 1+ /uL (Negative); Urine Specific Gravity 1.004 (1.001-1.035)
[2019-09-08 11:21] LABS: Creatinine, Urine 15 mg/dL (30.0-125.0); Protein, Urine 49.3 mg/dL (0.0-11.9)
== END | disposition home or self-care (01) ==
LOC: LAB 07:57
PROVIDERS: ATTEND Internal Medicine Nephrology
DX: E11.22 Type 2 diabetes mellitus with diabetic chronic kidney disease (principal); N18.3 Chronic kidney disease, stage 3 (moderate); E78.5 Hyperlipidemia, unspecified; E56.9 Vitamin deficiency, unspecified; R80.9 Proteinuria, unspecified; M10.9 Gout, unspecified; D63.1 Anemia in chronic kidney disease; N39.0 Urinary tract infection, site not specified; E21.3 Hyperparathyroidism, unspecified
CPT/HCPCS: 36415; 80061; 80069; 81003; 82306; 82570; 83036; 84156; 84550; 85007; 85027

== ENCOUNTER → 2019-09-16 | Outpatient (CLI) | payer MEDICARE ==
[2019-09-16 11:00] LABS: Hematocrit 28.9 % (36.0-46.0); Hemoglobin 9.6 g/dL (12.2-16.2); Mean Corpuscular Hemoglobin 30.4 pg (28.0-32.0); Mean Corpuscular Hgb Conc. 33.1 g/dL (32.0-36.0); Mean Corpuscular Volume 91.8 fL (80.0-100.0); Platelet Count (auto) 180 10^3/uL (140-450); Red Blood Cells 3.15 10^6/uL (4.0-5.20); Red Cell Distribution Width 13.3 % (11.8-14.3); White Blood Cell 7.8 10^3/uL (4.4-10.8)
[2019-09-16 11:01] LABS: Urine Bacteria FEW /hpf (None Seen); Urine Blood 1+ /uL (Negative); Urine Specific Gravity 1.008 (1.001-1.035); Urine WBC 40 /hpf (0 - 5)
[2019-09-16 11:05] LABS: Calcium 8.9 mg/dL (8.5-10.1); Potassium 3.6 mmol/L (3.5-5.1); Protein, Urine 67.9 mg/dL (0.0-11.9)
[2019-09-16 11:09] LABS: Basophils % (manual) 0 (0.0-2.0); Blast Cells 0; Eosinophils % (manual) 0 (0-7); Metamyelocytes % 0; Myelocytes % 0; Promyelocytes % 0; Reactive Lymphocytes 0
[2019-09-16 11:11] LABS: Albumin 3.5 g/dL (3.4-5.0); BUN/Creatinine Ratio 22.8; Bilirubin, Total 0.4 mg/dL (0.2-1.0); Total Protein 7.5 g/dL (6.4-8.2)
[2019-09-16 11:14] LABS: Free T3 2.29 pg/mL (2.3-4.2); Free T4 (Free Thyroxine) 0.93 ng/dL (0.89-1.76); T3 Total 0.88 ng/mL (0.60-1.81)
[2019-09-16 14:17] LABS: Band Neutrophils % (manual) 3; Lymphocytes % (manual) 56 (10.0-50.0); Monocytes % (manual) 5 (0-12)
== END | disposition home or self-care (01) ==
LOC: LAB 09:51
PROVIDERS: ATTEND Internal Medicine Nephrology
DX: R22.43 Localized swelling, mass and lump, lower limb, bilateral (principal); E03.9 Hypothyroidism, unspecified; Z87.440 Personal history of urinary (tract) infections; Z79.899 Other long term (current) drug therapy
CPT/HCPCS: 36415; 80053; 80069; 81001; 82570; 84156; 84166; 84439; 84443; 84480; 84481; 85007; 85027; 87086

== ENCOUNTER → 2019-10-22 | Outpatient (CLI) | payer MEDICARE | END | disposition home or self-care (01) | LOC: LAB 15:12 | PROVIDERS: ATTEND Urology | DX: N39.0 Urinary tract infection, site not specified (principal); N13.2 Hydronephrosis with renal and ureteral calculous obstruction | CPT/HCPCS: 87086; 87088; 87186 ==

== ENCOUNTER → 2019-12-31 | Day surgery (SDC) | payer MEDICARE, MEDICAID ==
[2019-12-25 15:06] LABS: Hematocrit 28.8 % (36.0-46.0); Hemoglobin 10.2 g/dL (12.2-16.2); Mean Corpuscular Hemoglobin 32.9 pg (28.0-32.0); Mean Corpuscular Hgb Conc. 35.3 g/dL (32.0-36.0); Mean Corpuscular Volume 93.1 fL (80.0-100.0); Platelet Count (auto) 177 10^3/uL (140-450); Red Blood Cells 3.09 10^6/uL (4.0-5.20); Red Cell Distribution Width 13.7 % (11.8-14.3); White Blood Cell 6.5 10^3/uL (4.4-10.8)
[2019-12-25 15:11] LABS: INR 0.97 (0.9-1.15); Partial Thromboplastin Time 25.4 sec (23.0-31.2)
[2019-12-25 15:13] LABS: Alanine Aminotransferase 22 U/L (13-56); Albumin 3.5 g/dL (3.4-5.0); Anion Gap 6 (5-15); Aspartate Aminotransferase 19 U/L (15-37); BUN/Creatinine Ratio 19.7; Blood Urea Nitrogen 43 mg/dL (7-18); Calcium 8.8 mg/dL (8.5-10.1); Carbon Dioxide 23 mmol/L (21-32); Chloride 110 mmol/L (98-107); GFR African American 27 mL/min; GFR Non-African American 23 mL/min; Glucose 94 mg/dL (74-106); Sodium 139 mmol/L (136-145)
[2019-12-25 15:16] LABS: Alkaline Phosphatase 81 U/L (45-117); Bilirubin, Total 0.3 mg/dL (0.2-1.0); Total Protein 7.7 g/dL (6.4-8.2)
[2019-12-25 15:30] LABS: Band Neutrophils % (manual) 0; Basophils % (manual) 0 (0.0-2.0); Blast Cells 0; Metamyelocytes % 0; Myelocytes % 0; Promyelocytes % 0; Reactive Lymphocytes 0
[2019-12-25 16:00] LABS: Urine Bacteria MOD /hpf (None Seen); Urine Blood 1+ /uL (Negative); Urine Specific Gravity 1.013 (1.001-1.035); Urine WBC 822 /hpf (0 - 5); Urine WBC Clumps PRESENT /hpf (None Seen)
[2019-12-25 17:31] LABS: Eosinophils % (manual) 1 (0-7); Lymphocytes % (manual) 60 (10.0-50.0); Monocytes % (manual) 4 (0-12)
[~2019-12-31] VITALS: Ht 129.5 cm; Wt 38.6 kg
[~2019-12-31] MED LIST changes: -DONE5TAB31 PO; +ETOMIDATE (2MG/ML) 20ML VIAL IV ONE; +HYDROmorphone HCL 2 MG/ML VL IV PRN; +LIDOCAINE 1% (LOCAL ANESTH.) PF 5ml SDV ONE; +NALOXONE HCL 0.4 MG/ML VIAL IV PRN; +ONDANSETRON HCL 4 MG/2 ML VIAL IV PRN; +SODIUM CHLORIDE LOCK 10 ML ONE; +SUCCINYLCHOLINE CHLORIDE 20 MG/ML 10ML VIAL IV ONE; +ceFAZolin 1GM/50ML 50 ML IV ONE; +ePHEDrine SULFATE 50 MG/ML AMP ONE; +fentaNYL CITRATE 100 MCG/2 ML VL ONE
[2019-12-31 12:25] VITALS: BP 147/74
== END | disposition home or self-care (01) ==
LOC: SUR 08:09
PROVIDERS: ATTEND Urology
DX: N13.5 Crossing vessel and stricture of ureter without hydronephrosis (principal); K21.9 Gastro-esophageal reflux disease without esophagitis; D64.9 Anemia, unspecified; N18.9 Chronic kidney disease, unspecified; E07.9 Disorder of thyroid, unspecified; E78.00 Pure hypercholesterolemia, unspecified; Z90.710 Acquired absence of both cervix and uterus; Z98.890 Other specified postprocedural states; Z20.828 Contact with and (suspected) exposure to other viral communicable diseases
CPT/HCPCS: 36415; 52332; 74018; 80053; 81001; 85007; 85027; 85610; 85730; C1769; C2617; J0330; J0690; J3010; J7030; U0003; 76000

== ENCOUNTER → 2020-02-19 | Outpatient (CLI) | payer MEDICARE, MEDICAID ==
[~2020-02-19] MED LIST changes: -ETOMIDATE (2MG/ML) 20ML VIAL IV ONE; -HYDROmorphone HCL 2 MG/ML VL IV PRN; -LIDOCAINE 1% (LOCAL ANESTH.) PF 5ml SDV ONE; -NALOXONE HCL 0.4 MG/ML VIAL IV PRN; -ONDANSETRON HCL 4 MG/2 ML VIAL IV PRN; -SODIUM CHLORIDE LOCK 10 ML ONE; -SUCCINYLCHOLINE CHLORIDE 20 MG/ML 10ML VIAL IV ONE; -ceFAZolin 1GM/50ML 50 ML IV ONE; -ePHEDrine SULFATE 50 MG/ML AMP ONE; -fentaNYL CITRATE 100 MCG/2 ML VL ONE
[2020-02-19 07:40] LABS: Hematocrit 32.1 % (36.0-46.0); Hemoglobin 10.5 g/dL (12.2-16.2); Mean Corpuscular Hemoglobin 30.5 pg (28.0-32.0); Mean Corpuscular Hgb Conc. 32.6 g/dL (32.0-36.0); Mean Corpuscular Volume 93.7 fL (80.0-100.0); Platelet Count (auto) 147 10^3/uL (140-450); Red Blood Cells 3.43 10^6/uL (4.0-5.20); White Blood Cell 5.7 10^3/uL (4.4-10.8)
[2020-02-19 07:58] LABS: Band Neutrophils % (manual) 0; Basophils % (manual) 0 (0.0-2.0); Blast Cells 0; Metamyelocytes % 0; Promyelocytes % 0; Reactive Lymphocytes 0
[2020-02-19 08:35] LABS: Potassium 3.8 mmol/L (3.5-5.1)
[2020-02-19 08:50] LABS: Albumin 3.8 g/dL (3.4-5.0); BUN/Creatinine Ratio 20.8; Bilirubin, Total 0.4 mg/dL (0.2-1.0); Total Protein 8.2 g/dL (6.4-8.2)
[2020-02-19 10:40] LABS: Eosinophils % (manual) 1 (0-7); Lymphocytes % (manual) 67 (10.0-50.0); Monocytes % (manual) 2 (0-12); Myelocytes % 1
== END | disposition home or self-care (01) ==
LOC: LAB 07:20
PROVIDERS: ATTEND Internal Medicine
DX: N18.4 Chronic kidney disease, stage 4 (severe) (principal); E78.3 Hyperchylomicronemia; E21.3 Hyperparathyroidism, unspecified
CPT/HCPCS: 36415; 80053; 84439; 84443; 85007; 85027

== ENCOUNTER → 2020-07-27 | Outpatient (CLI) | payer MEDICARE, MEDICAID ==
[~2020-07-27] VITALS: Ht 157.5 cm; Wt 38.6 kg
[~2020-07-27] MED LIST changes: +ADENOSINE 32 MG in GIVE UN-DILUTED 0 ML IV STA
== END | disposition home or self-care (01) ==
LOC: XYW 11:00
PROVIDERS: ATTEND Internal Medicine
DX: Z01.810 Encounter for preprocedural cardiovascular examination (principal); N18.4 Chronic kidney disease, stage 4 (severe); F03.90 Unspecified dementia, unspecified severity, without behavioral disturbance, psychotic disturbance, mood disturbance, and anxiety; E03.9 Hypothyroidism, unspecified
CPT/HCPCS: 78452; 93017; A9500; J0153

== ENCOUNTER → 2020-07-29 | Outpatient (CLI) | payer MEDICARE, MEDICAID ==
[~2020-07-29] MED LIST changes: -ADENOSINE 32 MG in GIVE UN-DILUTED 0 ML IV STA
== END | disposition home or self-care (01) ==
LOC: XY 08:26
PROVIDERS: ATTEND Internal Medicine
DX: Z01.810 Encounter for preprocedural cardiovascular examination (principal); I51.7 Cardiomegaly
CPT/HCPCS: 93306

== ENCOUNTER → 2020-08-10 | Outpatient (CLI) | payer MEDICARE, MEDICAID ==
[2020-08-10 08:18] LABS: Basophils # (auto) 0 10 ^3/uL (0-0.2); Basophils % (auto) 0.5 % (0.0-2.0); Eosinophils # (auto) 0 10 ^3/uL (0-0.8); Eosinophils % (auto) 0.5 % (0.0-7.0); Hematocrit 27.9 % (36.0-46.0); Hemoglobin 9.5 g/dL (12.2-16.2); Lymphocytes # (auto) 2.9 10 ^3/uL (0.4-5.4); Lymphocytes % (auto) 37.4 % (10.0-50.0); Mean Corpuscular Hemoglobin 32.6 pg (28.0-32.0); Mean Corpuscular Hgb Conc. 34.2 g/dL (32.0-36.0); Mean Corpuscular Volume 95.3 fL (80.0-100.0); Monocytes # (auto) 0.5 10 ^3/uL (0-1.3); Monocytes % (auto) 6.9 % (0.0-12.0); Neutrophils # (auto) 4.3 10 ^3/uL (1.6-8.6); Neutrophils % (auto) 54.7 % (37.0-80.0); Nucleated Red Blood Cells % 0.1 %; Platelet Count (auto) 180 10^3/uL (140-450); Red Blood Cells 2.93 10^6/uL (4.0-5.20); White Blood Cell 7.9 10^3/uL (4.4-10.8)
[2020-08-10 08:47] LABS: Potassium 3.6 mmol/L (3.5-5.1)
[2020-08-10 08:53] LABS: Albumin 3.4 g/dL (3.4-5.0); BUN/Creatinine Ratio 27.4; Bilirubin, Total 0.4 mg/dL (0.2-1.0)
[2020-08-10 09:16] LABS: Urine Bacteria FEW /hpf (None Seen); Urine Blood 2+ /uL (Negative); Urine Specific Gravity 1.009 (1.001-1.035); Urine WBC 407 /hpf (0 - 5); Urine WBC Clumps PRESENT /hpf (None Seen)
== END | disposition home or self-care (01) ==
LOC: LAB 08:00
PROVIDERS: ATTEND Internal Medicine
DX: Z01.812 Encounter for preprocedural laboratory examination (principal); E03.9 Hypothyroidism, unspecified
CPT/HCPCS: 36415; 80053; 81001; 85025

== ENCOUNTER 2020-08-25 06:56 | Day surgery (SDC) | payer MEDICARE, MEDICAID ==
[2020-08-22 12:24] LABS: Hematocrit 27.8 % (36.0-46.0); Hemoglobin 9.3 g/dL (12.2-16.2); Mean Corpuscular Hemoglobin 31.5 pg (28.0-32.0); Mean Corpuscular Hgb Conc. 33.5 g/dL (32.0-36.0); Mean Corpuscular Volume 94.1 fL (80.0-100.0); Red Blood Cells 2.96 10^6/uL (4.0-5.20); Red Cell Distribution Width 12.8 % (11.8-14.3); White Blood Cell 6.9 10^3/uL (4.4-10.8)
[2020-08-22 12:32] LABS: Urine Bacteria NONE SEEN /hpf (None Seen); Urine Blood TRACE /uL (Negative); Urine Specific Gravity 1.009 (1.001-1.035); Urine WBC 43 /hpf (0 - 5)
[2020-08-22 12:36] LABS: INR 1.02 (0.9-1.15); Partial Thromboplastin Time 25.4 sec (23.0-31.2)
[2020-08-22 12:42] LABS: Basophils % (manual) 0 (0.0-2.0); Blast Cells 0; Eosinophils % (manual) 0 (0-7); Metamyelocytes % 0; Myelocytes % 0; Promyelocytes % 0
[2020-08-22 12:57] LABS: Albumin 3.5 g/dL (3.4-5.0); Calcium 9.2 mg/dL (8.5-10.1)
[2020-08-22 12:59] LABS: BUN/Creatinine Ratio 25.7
[2020-08-22 13:01] LABS: Bilirubin, Total 0.3 mg/dL (0.2-1.0); Total Protein 8.1 g/dL (6.4-8.2)
[2020-08-22 15:51] LABS: Band Neutrophils % (manual) 2; Lymphocytes % (manual) 49 (10.0-50.0); Monocytes % (manual) 7 (0-12); Reactive Lymphocytes 3
[~2020-08-25] VITALS: Ht 188 cm; Wt 38.6 kg
[~2020-08-25 06:56] MED LIST changes: +MOXI0.5D BC; +PRE1T EACHEYE
[2020-08-25] MEDS ORDERED: PROPOFOL 10 MG/ML 20 ML IV ONE ×2 (07:05→07:50)
[2020-08-25] MEDS ORDERED: SODIUM CHLORIDE LOCK 10 ML ONE ×2 (07:05→07:50)
[2020-08-25] MEDS ORDERED: ONDANSETRON HCL 4 MG/2 ML VIAL ONE ×2 (07:05→07:50)
[2020-08-25] MEDS ORDERED: MIDAZOLAM HCL 2MG/2ML 2ml VIAL (1mg/ml) ONE ×2 (07:05→07:50)
[2020-08-25] MEDS ORDERED: fentaNYL CITRATE 100 MCG/2 ML VL ONE ×2 (07:05→07:50)
[2020-08-25] MEDS ORDERED: ceFAZolin 1GM/50ML 50 ML IV ONE (08:23)
[2020-08-25] MEDS ORDERED: IOHEXOL 300 MG/ML 100ML BOTTLE IJ ONE (08:44)
[2020-08-25] MEDS ORDERED: MORPHINE SULFATE 4 MG/ML SYR/VIAL IV PRN (08:45)
[2020-08-25] MEDS ORDERED: HYDROmorphone HCL 2 MG/ML VL IV PRN (08:45)
[2020-08-25] MEDS ORDERED: METOCLOPRAMIDE HCL 5MG/ml INJ 2ml VIAL IV PRN (08:45)
[2020-08-25] MEDS ORDERED: DexAMETHasone SOD PHOS 10MG/1ML VIAL INJ ONE (09:15)
[2020-08-25 11:00] VITALS: BP 149/68
== END 2020-08-25 11:30 | disposition home or self-care (01) ==
LOC: SUR 06:56
PROVIDERS: ATTEND Urology
DX: N13.5 Crossing vessel and stricture of ureter without hydronephrosis (principal); E03.9 Hypothyroidism, unspecified; D64.9 Anemia, unspecified; E78.5 Hyperlipidemia, unspecified; I12.9 Hypertensive chronic kidney disease with stage 1 through stage 4 chronic kidney disease, or unspecified chronic kidney disease; N18.4 Chronic kidney disease, stage 4 (severe); H26.8 Other specified cataract; F99 Mental disorder, not otherwise specified; Z20.822 Contact with and (suspected) exposure to COVID-19; Z98.890 Other specified postprocedural states; Z79.899 Other long term (current) drug therapy; Z87.11 Personal history of peptic ulcer disease; Z90.710 Acquired absence of both cervix and uterus
CPT/HCPCS: 36415; 52332; 74018; 80053; 81001; 85007; 85027; 85610; 85730; 88300; C1769; C2617; C9803; J0690; J1100; J2250; J2405; J2704; J3010; J7030; Q9967; U0003; 76000

== ENCOUNTER → 2020-09-07 | Outpatient (CLI) | payer MEDICARE, MEDICAID ==
[2020-09-07 07:55] LABS: Urine Blood 2+ /uL (Negative); Urine Specific Gravity 1.009 (1.001-1.035)
[2020-09-07 08:00] LABS: Basophils # (auto) 0 10 ^3/uL (0-0.2); Basophils % (auto) 0.6 % (0.0-2.0); Eosinophils # (auto) 0.1 10 ^3/uL (0-0.8); Eosinophils % (auto) 1.7 % (0.0-7.0); Hematocrit 29.5 % (36.0-46.0); Mean Corpuscular Hemoglobin 31.6 pg (28.0-32.0); Mean Corpuscular Hgb Conc. 33.8 g/dL (32.0-36.0); Mean Corpuscular Volume 93.7 fL (80.0-100.0); Nucleated Red Blood Cells % 0.1 %; Platelet Count (auto) 168 10^3/uL (140-450); Red Blood Cells 3.15 10^6/uL (4.0-5.20); Red Cell Distribution Width 13.2 % (11.8-14.3)
[2020-09-07 08:03] LABS: Lymphocytes # (auto) 4.9 10 ^3/uL (0.4-5.4); Lymphocytes % (auto) 49.6 % (10.0-50.0); Monocytes # (auto) 0.6 10 ^3/uL (0-1.3); Monocytes % (auto) 10.4 % (0.0-12.0); Neutrophils # (auto) 2.7 10 ^3/uL (1.6-8.6); Neutrophils % (auto) 37.6 % (37.0-80.0)
[2020-09-07 08:09] LABS: INR 0.97 (0.9-1.15); Partial Thromboplastin Time 25.4 sec (23.0-31.2)
[2020-09-07 08:31] LABS: Potassium 3.4 mmol/L (3.5-5.1)
[2020-09-07 08:37] LABS: Albumin 3.4 g/dL (3.4-5.0); BUN/Creatinine Ratio 21.8; Bilirubin, Total 0.4 mg/dL (0.2-1.0); Calcium 8.4 mg/dL (8.5-10.1); Total Protein 7.7 g/dL (6.4-8.2)
== END | disposition home or self-care (01) ==
LOC: LAB 07:20
PROVIDERS: ATTEND Specialist
DX: Z01.812 Encounter for preprocedural laboratory examination (principal); H25.11 Age-related nuclear cataract, right eye; D68.9 Coagulation defect, unspecified; Z79.01 Long term (current) use of anticoagulants
CPT/HCPCS: 36415; 80053; 81003; 85025; 85049; 85610; 85730

== ENCOUNTER 2020-09-14 14:48 | Inpatient (IN) | payer MEDICARE, MEDICAID ==
[~2020-09-14] VITALS: Ht 152.4 cm; Wt 36.2 kg
[2020-09-14] MEDS ORDERED: SODIUM CHLORIDE 0.9% 1,000 ML IVB ONE (17:15)
[2020-09-14 17:35] LABS: Basophils # (auto) 0 10 ^3/uL (0-0.2); Basophils % (auto) 0.2 % (0.0-2.0); Eosinophils # (auto) 0 10 ^3/uL (0-0.8); Hematocrit 29.7 % (36.0-46.0); Hemoglobin 10.1 g/dL (12.2-16.2); Lymphocytes # (auto) 0.9 10 ^3/uL (0.4-5.4); Lymphocytes % (auto) 13.9 % (10.0-50.0); Mean Corpuscular Hemoglobin 32.3 pg (28.0-32.0); Mean Corpuscular Hgb Conc. 34.1 g/dL (32.0-36.0); Mean Corpuscular Volume 94.8 fL (80.0-100.0); Monocytes # (auto) 0.1 10 ^3/uL (0-1.3); Neutrophils # (auto) 5.5 10 ^3/uL (1.6-8.6); Neutrophils % (auto) 84.9 % (37.0-80.0); Red Blood Cells 3.13 10^6/uL (4.0-5.20); Red Cell Distribution Width 13.4 % (11.8-14.3); White Blood Cell 6.5 10^3/uL (4.4-10.8)
[2020-09-14 17:51] LABS: Albumin 3.4 g/dL (3.4-5.0); BUN/Creatinine Ratio 22.3; Calcium 8.8 mg/dL (8.5-10.1); Potassium 4.1 mmol/L (3.5-5.1)
[2020-09-14 17:54] LABS: Bilirubin, Total 0.3 mg/dL (0.2-1.0)
[2020-09-14] MEDS ORDERED: CIPR-173 PO (18:08)
[2020-09-14] MEDS ORDERED: PRED1SUS4 OP (18:08)
[2020-09-14 18:20] LABS: Urine Bacteria NONE SEEN /hpf (None Seen); Urine Blood 2+ /uL (Negative); Urine Mucus FEW (None Seen); Urine WBC 164 /hpf (0 - 5); Urine WBC Clumps PRESENT /hpf (None Seen)
[2020-09-14] MEDS ORDERED: cefTRIAXone 1GM/50ML D5W 50 ML IV ONE (19:00)
[2020-09-14] MEDS ORDERED: MORPHINE SULF INJ 2 MG/ML SYRINGE 1ML IV PRN (21:30)
[2020-09-14] MEDS ORDERED: ONDANSETRON HCL 4 MG/2 ML VIAL IV PRN (21:30)
[2020-09-14] MEDS ORDERED: NITROGLYCERIN 0.4 MG SL TAB SL PRN (21:30)
[2020-09-14] MEDS ORDERED: ACETAMINOPHEN 325 MG TAB PO PRN (21:30)
[2020-09-14] MEDS ORDERED: MEMANTINE HCL 5 MG TAB PO SCH (22:00)
[2020-09-14] MEDS: DONEPEZIL HYDROCHLORIDE 5 MG TAB PO SCH (22:32)
[2020-09-14] MEDS: MEMANTINE HCL 5 MG TAB PO SCH (22:33)
[2020-09-14 22:45] VITALS: BP 136/77
[2020-09-14 23:14] VITALS: BP 136/77
[2020-09-15 05:00] VITALS: BP 131/68
[2020-09-15 06:07] LABS: Basophils # (auto) 0 10 ^3/uL (0-0.2); Basophils % (auto) 0.4 % (0.0-2.0); Eosinophils # (auto) 0 10 ^3/uL (0-0.8); Hematocrit 29.8 % (36.0-46.0); Hemoglobin 10.4 g/dL (12.2-16.2); Lymphocytes # (auto) 2.9 10 ^3/uL (0.4-5.4); Lymphocytes % (auto) 28.4 % (10.0-50.0); Mean Corpuscular Hemoglobin 32.4 pg (28.0-32.0); Mean Corpuscular Hgb Conc. 34.8 g/dL (32.0-36.0); Monocytes # (auto) 0.5 10 ^3/uL (0-1.3); Neutrophils # (auto) 6.8 10 ^3/uL (1.6-8.6); Neutrophils % (auto) 66.2 % (37.0-80.0); Nucleated Red Blood Cells % 0.1 %; Red Cell Distribution Width 13.1 % (11.8-14.3); White Blood Cell 10.3 10^3/uL (4.4-10.8)
[2020-09-15] MEDS: LEVOTHYROXINE SODIUM 25 MCG TAB PO SCH (06:14)
[2020-09-15 06:30] LABS: BUN/Creatinine Ratio 25.7; Calcium 8.3 mg/dL (8.5-10.1); Potassium 3.6 mmol/L (3.5-5.1)
[2020-09-15] MEDS: cefTRIAXone 1GM/50ML D5W 50 ML IV SCH (08:49)
[2020-09-15] MEDS: PANTOPRAZOLE 40 MG TAB PO SCH (08:50)
[2020-09-15] MEDS: MEMANTINE HCL 5 MG TAB PO SCH ×2 (08:50→21:09)
[2020-09-15 12:00] VITALS: BP_SYST 142; BP_SYST 145; BP_DIAS 75
[2020-09-15] MEDS ORDERED: THROAT LOZENGES(CEPASTAT) MT PRN ×3 (13:00→13:15)
[2020-09-15] MEDS: SODIUM BICARBONATE 50ML VIAL 50 ML in SOD CHL 0.45% 1,000 ML IV SCH (13:00)
[2020-09-15 17:00] VITALS: BP 137/65
[2020-09-15] MEDS: DONEPEZIL HYDROCHLORIDE 5 MG TAB PO SCH (21:09)
[2020-09-15 21:53] VITALS: BP 132/71
[2020-09-16] MEDS: SODIUM BICARBONATE 50ML VIAL 50 ML in SOD CHL 0.45% 1,000 ML IV SCH (04:00)
[2020-09-16 05:30] VITALS: BP 151/87
[2020-09-16 06:00] LABS: Calcium 7.9 mg/dL (8.5-10.1); Potassium 3.4 mmol/L (3.5-5.1)
[2020-09-16 06:11] LABS: Hematocrit 28.8 % (36.0-46.0); Hemoglobin 9.8 g/dL (12.2-16.2); Mean Corpuscular Hemoglobin 32.2 pg (28.0-32.0); Mean Corpuscular Hgb Conc. 34.2 g/dL (32.0-36.0); Red Blood Cells 3.06 10^6/uL (4.0-5.20); Red Cell Distribution Width 13.1 % (11.8-14.3); White Blood Cell 8.7 10^3/uL (4.4-10.8)
[2020-09-16] MEDS: LEVOTHYROXINE SODIUM 25 MCG TAB PO SCH (06:24)
[2020-09-16 07:05] LABS: Band Neutrophils % (manual) 0; Blast Cells 0; Metamyelocytes % 0; Myelocytes % 0; Promyelocytes % 0; Reactive Lymphocytes 0
[2020-09-16 08:18] LABS: Basophils % (manual) 1 (0.0-2.0); Eosinophils % (manual) 1 (0-7); Lymphocytes % (manual) 64 (10.0-50.0); Monocytes % (manual) 5 (0-12)
[2020-09-16] MEDS ORDERED: NITROGLYCERIN 0.4 MG SL TAB SL ONE (08:38)
[2020-09-16] MEDS: cefTRIAXone 1GM/50ML D5W 50 ML IV SCH (08:49)
[2020-09-16] MEDS: MEMANTINE HCL 5 MG TAB PO SCH (08:49)
[2020-09-16] MEDS: PANTOPRAZOLE 40 MG TAB PO SCH (08:50)
[2020-09-16] MEDS ORDERED: POLYETHYLENE GLYCOL 17 GM PWDR PO ONE (09:00)
[2020-09-16] MEDS ORDERED: amLODIPine BESYLATE 5 MG TAB PO SCH (10:00)
[2020-09-16] MEDS ORDERED: POTASSIUM CHL 20 Meq TABLET PO ONE (10:45)
[2020-09-17] MEDS ORDERED: POLYETHYLENE GLYCOL 17 GM PWDR PO SCH (10:00)
== END 2020-09-16 17:00 | disposition home or self-care (01) | DRG 690 ==
LOC: EDBD 14:48 → ER 14:48 → EDUNIT# 14:48 → OVERFLOW 21:29 → WEST WING 22:55
PROVIDERS: ADMIT Nurse Practitioner; ATTEND Internal Medicine
DX: N13.6 Pyonephrosis (principal); F03.90 Unspecified dementia, unspecified severity, without behavioral disturbance, psychotic disturbance, mood disturbance, and anxiety; D63.8 Anemia in other chronic diseases classified elsewhere; I12.9 Hypertensive chronic kidney disease with stage 1 through stage 4 chronic kidney disease, or unspecified chronic kidney disease; Z20.822 Contact with and (suspected) exposure to COVID-19; N18.32 Chronic kidney disease, stage 3b
CPT/HCPCS: 36415; 71045; 76775; 80048; 80053; 81001; 83036; 83735; 85007; 85025; 85027; 85049; 87086; 87426; 93005; 96361; 96365; G0378; J0696

== ENCOUNTER 2020-12-15 06:57 | Day surgery (SDC) | payer MEDICARE, MEDICAID ==
[2020-12-12 11:52] LABS: Basophils # (auto) 0 10 ^3/uL (0-0.2); Basophils % (auto) 0.5 % (0.0-2.0); Eosinophils # (auto) 0 10 ^3/uL (0-0.8); Eosinophils % (auto) 0.4 % (0.0-7.0); Hematocrit 31.6 % (36.0-46.0); Hemoglobin 10.2 g/dL (12.2-16.2); Lymphocytes % (auto) 41.4 % (10.0-50.0); Mean Corpuscular Hemoglobin 29.6 pg (28.0-32.0); Mean Corpuscular Hgb Conc. 32.2 g/dL (32.0-36.0); Mean Corpuscular Volume 91.8 fL (80.0-100.0); Monocytes # (auto) 0.4 10 ^3/uL (0-1.3); Monocytes % (auto) 5.5 % (0.0-12.0); Neutrophils # (auto) 3.8 10 ^3/uL (1.6-8.6); Neutrophils % (auto) 52.2 % (37.0-80.0); Red Blood Cells 3.44 10^6/uL (4.0-5.20); Red Cell Distribution Width 13.8 % (11.8-14.3); White Blood Cell 7.3 10^3/uL (4.4-10.8)
[2020-12-12 12:02] LABS: Urine Bacteria NONE SEEN /hpf (None Seen); Urine Blood 2+ /uL (Negative); Urine Specific Gravity 1.011 (1.001-1.035); Urine WBC 435 /hpf (0 - 5); Urine WBC Clumps PRESENT /hpf (None Seen)
[2020-12-12 12:06] LABS: INR 0.99 (0.9-1.15); Partial Thromboplastin Time 27.9 sec (23.6-33.0)
[2020-12-12 12:08] LABS: Albumin 3.5 g/dL (3.4-5.0); Calcium 9.4 mg/dL (8.5-10.1); Potassium 3.5 mmol/L (3.5-5.1)
[2020-12-12 12:13] LABS: BUN/Creatinine Ratio 22.3; Bilirubin, Total 0.4 mg/dL (0.2-1.0); Total Protein 9.1 g/dL (6.4-8.2)
[~2020-12-15] VITALS: Ht 157.5 cm; Wt 36.3 kg
[~2020-12-15 06:57] MED LIST changes: -MOXI0.5D BC; -PRE1T EACHEYE
[2020-12-15] MEDS ORDERED: CIPROFLOXACIN 400MG/200ML 200 ML IV ONE (08:27)
[2020-12-15] MEDS ORDERED: IOHEXOL 300 MG/ML 100ML BOTTLE IJ ONE (09:09)
[2020-12-15] MEDS ORDERED: fentaNYL CITRATE 100 MCG/2 ML VL ONE (09:21)
[2020-12-15] MEDS ORDERED: MIDAZOLAM HCL 2MG/2ML 2ml VIAL (1mg/ml) ONE (09:21)
[2020-12-15] MEDS ORDERED: KETAMINE HCL 10 ML ONE (09:42)
[2020-12-15 10:15] VITALS: BP 124/69
== END 2020-12-15 11:50 | disposition home or self-care (01) ==
LOC: SUR 06:57
PROVIDERS: ATTEND Urology
DX: N13.1 Hydronephrosis with ureteral stricture, not elsewhere classified (principal); E03.9 Hypothyroidism, unspecified; R00.2 Palpitations; N18.4 Chronic kidney disease, stage 4 (severe); Z90.710 Acquired absence of both cervix and uterus; Z98.890 Other specified postprocedural states; Z79.899 Other long term (current) drug therapy; Z87.11 Personal history of peptic ulcer disease
CPT/HCPCS: 36415; 52332; 74018; 76000; 80053; 81001; 85025; 85610; 85730; C1769; C2617; J0744; J2250; J3010; J7030; Q9967; U0003

== ENCOUNTER → 2021-03-07 | Outpatient (CLI) | payer MEDICARE, MEDICAID | END | disposition home or self-care (01) | LOC: LAB 15:16 | PROVIDERS: ATTEND Student in an Organized Health Care Education/Training Program | DX: E03.9 Hypothyroidism, unspecified (principal) | CPT/HCPCS: 36415; 84443 ==

== ENCOUNTER → 2021-03-30 | Outpatient (CLI) | payer MEDICARE, MEDICAID ==
[~2021-03-30] MED LIST changes: +ACE3T PO; +CEPH-509 PO
[2021-03-30 15:56] LABS: Basophils # (auto) 0.1 10 ^3/uL (0-0.2); Basophils % (auto) 1.8 % (0.0-2.0); Eosinophils # (auto) 0 10 ^3/uL (0-0.8); Eosinophils % (auto) 0.1 % (0.0-7.0); Hemoglobin 9.9 g/dL (12.2-16.2); Lymphocytes # (auto) 3.1 10 ^3/uL (0.4-5.4); Lymphocytes % (auto) 41.8 % (10.0-50.0); Mean Corpuscular Hemoglobin 30.4 pg (28.0-32.0); Mean Corpuscular Hgb Conc. 33.1 g/dL (32.0-36.0); Mean Corpuscular Volume 91.7 fL (80.0-100.0); Monocytes # (auto) 0.4 10 ^3/uL (0-1.3); Monocytes % (auto) 5.6 % (0.0-12.0); Neutrophils # (auto) 3.7 10 ^3/uL (1.6-8.6); Neutrophils % (auto) 50.7 % (37.0-80.0); Nucleated Red Blood Cells % 0.1 %; Red Blood Cells 3.27 10^6/uL (4.0-5.20); Red Cell Distribution Width 13.6 % (11.8-14.3); White Blood Cell 7.4 10^3/uL (4.4-10.8)
[2021-03-30 15:59] LABS: Urine Bacteria FEW /hpf (None Seen); Urine Blood 1+ /uL (Negative); Urine Specific Gravity 1.009 (1.001-1.035); Urine WBC 141 /hpf (0 - 5); Urine WBC Clumps PRESENT /hpf (None Seen)
[2021-03-30 16:11] LABS: INR 1.01 (0.9-1.15); Partial Thromboplastin Time 26.6 sec (23.6-33.0)
[2021-03-30 17:11] LABS: BUN/Creatinine Ratio 22.9; Calcium 8.8 mg/dL (8.5-10.1); Potassium 3.8 mmol/L (3.5-5.1)
== END | disposition home or self-care (01) ==
LOC: LAB 15:23
PROVIDERS: ATTEND Urology
DX: Z01.812 Encounter for preprocedural laboratory examination (principal); D53.8 Other specified nutritional anemias; M79.89 Other specified soft tissue disorders; N39.0 Urinary tract infection, site not specified
CPT/HCPCS: 36415; 80048; 81001; 85025; 85610; 85730; 87086; 87088; 87186

== ENCOUNTER 2021-05-31 13:46 | Emergency (ER) | payer MEDICARE, MEDICAID ==
[~2021-05-31] VITALS: Ht 157.5 cm; Wt 38.6 kg
[~2021-05-31 13:46] MED LIST changes: -ACE3T PO; -CEPH-509 PO
[2021-05-31] MEDS ORDERED: ONDANSETRON ODT 4 MG TAB PO ONE (15:30)
[2021-05-31] MEDS ORDERED: cefTRIAXone SOD 1,000 MG VL IM ONE (15:30)
[2021-05-31] MEDS ORDERED: ACETAMINOPHEN/CODEINE#3 (300/30mg) TAB PO ONE (15:30)
[2021-05-31 15:31] VITALS: BP 118/52
[2021-05-31] MEDS ORDERED: CEPH-509 PO (15:52)
[2021-05-31] MEDS ORDERED: ACE3T PO (15:52)
== END 2021-05-31 16:06 | disposition home or self-care (01) ==
LOC: ER 13:46
DX: L03.114 Cellulitis of left upper limb (principal); F03.90 Unspecified dementia, unspecified severity, without behavioral disturbance, psychotic disturbance, mood disturbance, and anxiety; I10 Essential (primary) hypertension; Z79.899 Other long term (current) drug therapy
CPT/HCPCS: 73110; 73130; 96372; 99284; J0696; Q0162

== ENCOUNTER → 2021-08-04 | Outpatient (CLI) | payer MEDICARE, MEDICAID ==
[~2021-08-04] MED LIST changes: +ACE3T PO; +CEPH-509 PO
[2021-08-04 07:55] LABS: Basophils # (auto) 0 10 ^3/uL (0-0.2); Basophils % (auto) 0.5 % (0.0-2.0); Eosinophils # (auto) 0 10 ^3/uL (0-0.8); Eosinophils % (auto) 0.7 % (0.0-7.0); Hematocrit 26.6 % (36.0-46.0); Hemoglobin 9.3 g/dL (12.2-16.2); Lymphocytes # (auto) 3.1 10 ^3/uL (0.4-5.4); Lymphocytes % (auto) 46.3 % (10.0-50.0); Mean Corpuscular Hemoglobin 31.6 pg (28.0-32.0); Mean Corpuscular Hgb Conc. 34.8 g/dL (32.0-36.0); Mean Corpuscular Volume 90.7 fL (80.0-100.0); Monocytes # (auto) 0.4 10 ^3/uL (0-1.3); Monocytes % (auto) 6.3 % (0.0-12.0); Neutrophils # (auto) 3.1 10 ^3/uL (1.6-8.6); Neutrophils % (auto) 46.2 % (37.0-80.0); Nucleated Red Blood Cells % 0.1 %; Red Blood Cells 2.94 10^6/uL (4.0-5.20); Red Cell Distribution Width 13.9 % (11.8-14.3); White Blood Cell 6.7 10^3/uL (4.4-10.8)
[2021-08-04 08:19] LABS: Urine Bacteria FEW /hpf (None Seen); Urine Blood 1+ /uL (Negative); Urine WBC 584 /hpf (0 - 5); Urine WBC Clumps PRESENT /hpf (None Seen)
[2021-08-04 08:26] LABS: Potassium 3.7 mmol/L (3.5-5.1)
[2021-08-04 08:28] LABS: BUN/Creatinine Ratio 23.4
[2021-08-04 08:35] LABS: INR 0.99 (0.9-1.15)
== END | disposition home or self-care (01) ==
LOC: LAB 07:32
PROVIDERS: ATTEND Urology
DX: M79.89 Other specified soft tissue disorders (principal); N39.0 Urinary tract infection, site not specified; D53.8 Other specified nutritional anemias
CPT/HCPCS: 36415; 80048; 81001; 85025; 85610; 85730; 87086

== ENCOUNTER 2021-08-10 09:36 | Inpatient (IN) | payer MEDICARE, MEDICAID ==
[~2021-08-10] VITALS: Ht 157.5 cm; Wt 37.5 kg
[2021-08-10 10:30] LABS: Urine Bacteria FEW /hpf (None Seen); Urine Blood 3+ /uL (Negative); Urine Hyaline Cast FEW /lpf (0 - 2); Urine WBC 122 /hpf (0 - 5)
[2021-08-10 11:27] LABS: Basophils # (auto) 0 10 ^3/uL (0-0.2); Basophils % (auto) 0.1 % (0.0-2.0); Eosinophils # (auto) 0 10 ^3/uL (0-0.8); Hematocrit 31.8 % (36.0-46.0); Hemoglobin 10.7 g/dL (12.2-16.2); Lymphocytes # (auto) 1.1 10 ^3/uL (0.4-5.4); Lymphocytes % (auto) 15.5 % (10.0-50.0); Mean Corpuscular Hemoglobin 30.7 pg (28.0-32.0); Mean Corpuscular Hgb Conc. 33.7 g/dL (32.0-36.0); Mean Corpuscular Volume 91.1 fL (80.0-100.0); Monocytes # (auto) 0.2 10 ^3/uL (0-1.3); Monocytes % (auto) 2.6 % (0.0-12.0); Neutrophils # (auto) 5.6 10 ^3/uL (1.6-8.6); Neutrophils % (auto) 81.8 % (37.0-80.0); Red Blood Cells 3.49 10^6/uL (4.0-5.20); Red Cell Distribution Width 13.7 % (11.8-14.3); White Blood Cell 6.9 10^3/uL (4.4-10.8)
[2021-08-10 11:55] LABS: Calcium 8.6 mg/dL (8.5-10.1); Potassium 4.2 mmol/L (3.5-5.1)
[2021-08-10 11:58] LABS: Bilirubin, Total 0.4 mg/dL (0.2-1.0)
[2021-08-10] MEDS ORDERED: CLOPIDOGREL BISULFATE 75 MG TAB PO ONE (13:15)
[2021-08-10] MEDS ORDERED: HEPARIN SODIUM (PORCINE) 5000 UNITS/ML 1ML VIAL IV ONE (13:15)
[2021-08-10 14:59] LABS: INR 1.03 (0.9-1.15); Partial Thromboplastin Time 28.1 sec (23.6-33.0)
[2021-08-10] MEDS ORDERED: NITROGLYCERIN 0.2MG/HR TOPICAL PATCH TD ONE (15:45)
[2021-08-10] MEDS ORDERED: NITROGLYCERIN 0.4 MG SL TAB SL PRN (15:45)
[2021-08-10] MEDS ORDERED: MORPHINE SULFATE INJ 2 MG/ml SYRG IV PRN (15:45)
[2021-08-10] MEDS ORDERED: cefTRIAXone 1GM/50ML D5W 50 ML IV ONE (16:00)
[2021-08-10] MEDS: SODIUM CHLORIDE 0.9% 2,000 ML IV SCH (16:14)
[2021-08-10 16:24] LABS: Cholesterol 159 mg/dL (< 200); Triglycerides 80 mg/dL (< 150)
[2021-08-10 16:28] LABS: HDL Cholesterol 65 mg/dL (40-59); LDL Cholesterol 85 mg/dL (< 100)
[2021-08-11 07:36] LABS: Basophils # (auto) 0 10 ^3/uL (0-0.2); Basophils % (auto) 0.3 % (0.0-2.0); Eosinophils # (auto) 0 10 ^3/uL (0-0.8); Hematocrit 34.4 % (36.0-46.0); Lymphocytes # (auto) 1.7 10 ^3/uL (0.4-5.4); Lymphocytes % (auto) 25.6 % (10.0-50.0); Mean Corpuscular Hemoglobin 31.8 pg (28.0-32.0); Mean Corpuscular Hgb Conc. 31.9 g/dL (32.0-36.0); Mean Corpuscular Volume 99.7 fL (80.0-100.0); Monocytes # (auto) 0.3 10 ^3/uL (0-1.3); Monocytes % (auto) 4.6 % (0.0-12.0); Neutrophils # (auto) 4.6 10 ^3/uL (1.6-8.6); Neutrophils % (auto) 69.5 % (37.0-80.0); Nucleated Red Blood Cells % 0.1 %; Red Blood Cells 3.45 10^6/uL (4.0-5.20); Red Cell Distribution Width 14.8 % (11.8-14.3); White Blood Cell 6.7 10^3/uL (4.4-10.8)
[2021-08-11 07:54] LABS: Calcium 8.3 mg/dL (8.5-10.1); Potassium 4.2 mmol/L (3.5-5.1)
[2021-08-11 08:00] LABS: Albumin 2.7 g/dL (3.4-5.0); BUN/Creatinine Ratio 21.7; Bilirubin, Total 0.4 mg/dL (0.2-1.0); Total Protein 7.6 g/dL (6.4-8.2)
[2021-08-11] MEDS: cefTRIAXone 1GM/50ML D5W 50 ML IV SCH (09:11)
[2021-08-11] MEDS ORDERED: SODIUM CHLORIDE 0.9% 1,000 ML IV SCH (11:30)
[2021-08-11 15:40] VITALS: BP 112/68
[2021-08-11 17:00] VITALS: BP 132/70
[2021-08-11] MEDS: SODIUM CHLORIDE 0.9% 2,000 ML IV SCH (17:09)
[2021-08-11] MEDS ORDERED: ACETAMINOPHEN 500 MG TAB PO ONE (17:45)
[2021-08-11 20:00] VITALS: BP 108/58
[2021-08-11 22:00] VITALS: BP 108/58
[2021-08-12] VITALS (8 sets, daily range): BP systolic 98–120; BP diastolic 54–88
[2021-08-12 07:25] LABS: BUN/Creatinine Ratio 24.4; Calcium 8.8 mg/dL (8.5-10.1); Magnesium 2.8 mg/dL (1.6-2.6); Potassium 4.2 mmol/L (3.5-5.1)
[2021-08-12] MEDS: cefTRIAXone 1GM/50ML D5W 50 ML IV SCH (08:51)
[2021-08-12] MEDS ORDERED: LEVOTHYROXINE SODIUM 25 MCG TAB PO ONE (10:00)
[2021-08-12] MEDS ORDERED: D5W/SOD CHLO 0.9% 1,000 ML IV SCH (10:15)
[2021-08-12] MEDS: D5W/LACTATED RINGERS 1,000 ML IV SCH ×2 (12:20→19:00)
[2021-08-12] MEDS: MEMANTINE HCL 5 MG TAB PO SCH (22:39)
[2021-08-12] MEDS: ATORVASTATIN 20 MG TAB PO SCH (22:39)
[2021-08-13] MEDS: D5W/LACTATED RINGERS 1,000 ML IV SCH ×3 (03:00→19:00)
[2021-08-13 04:33] VITALS: BP 108/60
[2021-08-13] MEDS: LEVOTHYROXINE SODIUM 25 MCG TAB PO SCH (06:28)
[2021-08-13 07:25] LABS: Basophils # (auto) 0 10 ^3/uL (0-0.2); Basophils % (auto) 0.3 % (0.0-2.0); Eosinophils # (auto) 0 10 ^3/uL (0-0.8); Eosinophils % (auto) 0.3 % (0.0-7.0); Hematocrit 28.9 % (36.0-46.0); Hemoglobin 9.9 g/dL (12.2-16.2); Lymphocytes # (auto) 2.9 10 ^3/uL (0.4-5.4); Lymphocytes % (auto) 46.2 % (10.0-50.0); Mean Corpuscular Hemoglobin 31.4 pg (28.0-32.0); Mean Corpuscular Hgb Conc. 34.4 g/dL (32.0-36.0); Mean Corpuscular Volume 91.3 fL (80.0-100.0); Monocytes # (auto) 0.4 10 ^3/uL (0-1.3); Monocytes % (auto) 7.1 % (0.0-12.0); Neutrophils # (auto) 2.9 10 ^3/uL (1.6-8.6); Neutrophils % (auto) 46.1 % (37.0-80.0); Red Blood Cells 3.17 10^6/uL (4.0-5.20); Red Cell Distribution Width 14.2 % (11.8-14.3); White Blood Cell 6.2 10^3/uL (4.4-10.8)
[2021-08-13 07:47] LABS: Potassium 3.7 mmol/L (3.5-5.1)
[2021-08-13 07:53] LABS: Calcium 8.7 mg/dL (8.5-10.1)
[2021-08-13 08:00] VITALS: BP 112/54
[2021-08-13] MEDS: cefTRIAXone 1GM/50ML D5W 50 ML IV SCH (09:01)
[2021-08-13 09:18] VITALS: BP 100/54
[2021-08-13] MEDS ORDERED: POLYETHYLENE GLYCOL 17 GM PWDR PO ONE (09:45)
[2021-08-13] MEDS ORDERED: ASPirin 81 mg TAB PO SCH (10:00)
[2021-08-13] MEDS ORDERED: CLOPIDOGREL BISULFATE 75 MG TAB PO SCH (10:00)
[2021-08-13] MEDS: MEMANTINE HCL 5 MG TAB PO SCH ×2 (10:23→21:45)
[2021-08-13 17:32] VITALS: BP 104/55
[2021-08-13] MEDS: ATORVASTATIN 20 MG TAB PO SCH (21:45)
[2021-08-13 22:00] VITALS: BP 120/63
[2021-08-14] MEDS: D5W/LACTATED RINGERS 1,000 ML IV SCH ×3 (03:01→21:28)
[2021-08-14 05:00] VITALS: BP 119/63
[2021-08-14] MEDS: LEVOTHYROXINE SODIUM 25 MCG TAB PO SCH (06:35)
[2021-08-14 08:00] LABS: Basophils # (auto) 0 10 ^3/uL (0-0.2); Basophils % (auto) 0.7 % (0.0-2.0); Eosinophils # (auto) 0.1 10 ^3/uL (0-0.8); Eosinophils % (auto) 1.4 % (0.0-7.0); Hematocrit 27.4 % (36.0-46.0); Hemoglobin 9.6 g/dL (12.2-16.2); Lymphocytes # (auto) 3.1 10 ^3/uL (0.4-5.4); Lymphocytes % (auto) 45.3 % (10.0-50.0); Mean Corpuscular Hemoglobin 31.2 pg (28.0-32.0); Mean Corpuscular Hgb Conc. 34.9 g/dL (32.0-36.0); Mean Corpuscular Volume 89.3 fL (80.0-100.0); Monocytes # (auto) 0.7 10 ^3/uL (0-1.3); Monocytes % (auto) 10.2 % (0.0-12.0); Neutrophils # (auto) 2.9 10 ^3/uL (1.6-8.6); Neutrophils % (auto) 42.4 % (37.0-80.0); Red Blood Cells 3.07 10^6/uL (4.0-5.20); Red Cell Distribution Width 13.8 % (11.8-14.3); White Blood Cell 6.9 10^3/uL (4.4-10.8)
[2021-08-14 08:10] LABS: BUN/Creatinine Ratio 22.5; Calcium 8.8 mg/dL (8.5-10.1); Potassium 3.8 mmol/L (3.5-5.1)
[2021-08-14] MEDS: cefTRIAXone 1GM/50ML D5W 50 ML IV SCH (08:37)
[2021-08-14 09:00] VITALS: BP 127/57
[2021-08-14] MEDS: MEMANTINE HCL 5 MG TAB PO SCH ×2 (10:19→21:28)
[2021-08-14 13:03] VITALS: BP 108/58
[2021-08-14 17:00] VITALS: BP 109/60
[2021-08-14] MEDS: ATORVASTATIN 20 MG TAB PO SCH (21:28)
[2021-08-14 22:00] VITALS: BP 104/57
[2021-08-15 05:00] VITALS: BP 110/57
[2021-08-15] MEDS: D5W/LACTATED RINGERS 1,000 ML IV SCH ×3 (05:27→22:46)
[2021-08-15] MEDS: LEVOTHYROXINE SODIUM 25 MCG TAB PO SCH (06:57)
[2021-08-15 09:00] VITALS: BP 106/50
[2021-08-15] MEDS: cefTRIAXone 1GM/50ML D5W 50 ML IV SCH (09:00)
[2021-08-15] MEDS: MEMANTINE HCL 5 MG TAB PO SCH ×2 (10:00→22:46)
[2021-08-15] MEDS: FLUCONAZOLE 200MG/100ML 100 ML IV SCH (10:31)
[2021-08-15 13:00] VITALS: BP 116/58
[2021-08-15 16:39] VITALS: BP 111/56
[2021-08-15 22:00] VITALS: BP 108/46
[2021-08-15] MEDS: ATORVASTATIN 20 MG TAB PO SCH (22:46)
[2021-08-16 05:00] VITALS: BP 116/58
[2021-08-16] MEDS: D5W/LACTATED RINGERS 1,000 ML IV SCH ×3 (05:44→19:00)
[2021-08-16] MEDS: LEVOTHYROXINE SODIUM 25 MCG TAB PO SCH (05:44)
[2021-08-16 08:09] LABS: Hematocrit 25.9 % (36.0-46.0); Hemoglobin 8.9 g/dL (12.2-16.2)
[2021-08-16 08:30] LABS: Potassium 3.8 mmol/L (3.5-5.1)
[2021-08-16 08:36] LABS: BUN/Creatinine Ratio 16.5; Calcium 8.1 mg/dL (8.5-10.1)
[2021-08-16 09:00] VITALS: BP 116/52
[2021-08-16] MEDS: cefTRIAXone 1GM/50ML D5W 50 ML IV SCH (09:00)
[2021-08-16] MEDS: MEMANTINE HCL 5 MG TAB PO SCH ×2 (10:00→21:18)
[2021-08-16] MEDS: FLUCONAZOLE 200MG/100ML 100 ML IV SCH (10:00)
[2021-08-16] MEDS ORDERED: POLYETHYLENE GLYCOL 17 GM PWDR PO ONE (11:30)
[2021-08-16 13:00] VITALS: BP 119/63
[2021-08-16 16:52] VITALS: BP 125/66
[2021-08-16 20:00] VITALS: BP 124/64
[2021-08-16] MEDS: ATORVASTATIN 20 MG TAB PO SCH (21:18)
[2021-08-16 22:00] VITALS: BP 124/64
[2021-08-17 05:00] VITALS: BP 109/62
[2021-08-17] MEDS: D5W/LACTATED RINGERS 1,000 ML IV SCH ×3 (05:00→21:23)
[2021-08-17] MEDS: LEVOTHYROXINE SODIUM 25 MCG TAB PO SCH (05:51)
[2021-08-17 05:58] LABS: Basophils # (auto) 0 10 ^3/uL (0-0.2); Basophils % (auto) 0.4 % (0.0-2.0); Eosinophils # (auto) 0.1 10 ^3/uL (0-0.8); Eosinophils % (auto) 1.3 % (0.0-7.0); Hematocrit 25.1 % (36.0-46.0); Hemoglobin 8.6 g/dL (12.2-16.2); Lymphocytes # (auto) 4.6 10 ^3/uL (0.4-5.4); Lymphocytes % (auto) 51.6 % (10.0-50.0); Mean Corpuscular Hemoglobin 31.6 pg (28.0-32.0); Mean Corpuscular Hgb Conc. 34.3 g/dL (32.0-36.0); Mean Corpuscular Volume 91.9 fL (80.0-100.0); Monocytes # (auto) 0.7 10 ^3/uL (0-1.3); Monocytes % (auto) 7.5 % (0.0-12.0); Neutrophils # (auto) 3.5 10 ^3/uL (1.6-8.6); Neutrophils % (auto) 39.2 % (37.0-80.0); Red Blood Cells 2.73 10^6/uL (4.0-5.20); Red Cell Distribution Width 13.9 % (11.8-14.3)
[2021-08-17 06:15] LABS: BUN/Creatinine Ratio 18.1; Calcium 7.9 mg/dL (8.5-10.1); Potassium 3.7 mmol/L (3.5-5.1)
[2021-08-17 06:23] LABS: INR 1.01 (0.9-1.15); Partial Thromboplastin Time 25.9 sec (23.6-33.0)
[2021-08-17 09:00] VITALS: BP 132/68
[2021-08-17] MEDS: FLUCONAZOLE 200MG/100ML 100 ML IV SCH (10:46)
[2021-08-17] MEDS: MEMANTINE HCL 5 MG TAB PO SCH ×2 (10:46→21:22)
[2021-08-17] MEDS: cefTRIAXone 1GM/50ML D5W 50 ML IV SCH (10:46)
[2021-08-17 13:00] VITALS: BP_SYST 134; BP_SYST 139; BP_DIAS 62
[2021-08-17] MEDS ORDERED: CIPROFLOXACIN 400MG/200ML 200 ML IV ONE (14:45)
[2021-08-17] MEDS ORDERED: fentaNYL CITRATE 100 MCG/2 ML VL ONE (15:22)
[2021-08-17] MEDS ORDERED: MIDAZOLAM HCL 2MG/2ML 2ml VIAL (1mg/ml) ONE (15:23)
[2021-08-17] MEDS ORDERED: ONDANSETRON HCL 4 MG/2 ML VIAL ONE (15:49)
[2021-08-17] MEDS ORDERED: PROPOFOL 10 MG/ML 20 ML IV ONE (15:50)
[2021-08-17] MEDS: ATORVASTATIN 20 MG TAB PO SCH (21:22)
[2021-08-17 22:00] VITALS: BP 110/50
[2021-08-18 05:00] VITALS: BP 126/79
[2021-08-18] MEDS: LEVOTHYROXINE SODIUM 25 MCG TAB PO SCH (05:53)
[2021-08-18] MEDS: D5W/LACTATED RINGERS 1,000 ML IV SCH ×2 (06:05→11:00)
[2021-08-18 09:00] VITALS: BP 110/53
[2021-08-18] MEDS: MEMANTINE HCL 5 MG TAB PO SCH (09:48)
[2021-08-18] MEDS: cefTRIAXone 1GM/50ML D5W 50 ML IV SCH (09:49)
[2021-08-18] MEDS: FLUCONAZOLE 200MG/100ML 100 ML IV SCH (09:49)
[2021-08-18 13:00] VITALS: BP 114/54
[2021-08-18 17:00] VITALS: BP 118/69
== END 2021-08-18 19:50 | disposition home or self-care (01) | DRG 689 ==
LOC: EDBD 09:36 → ER 09:36 → TELE 15:45 → TELE-CENTR 08-11 14:50 → CENTRAL 08-15 06:50
PROVIDERS: ADMIT Registered Nurse; ATTEND Internal Medicine
PROC: 0TCB8ZZ Extirpation of Matter from Bladder, Via Natural or Artificial Opening Endoscopic (ICD-10-PCS; principal; 2021-08-17 15:18)
DX: N13.6 Pyonephrosis (principal); I21.A1 Myocardial infarction type 2; E44.0 Moderate protein-calorie malnutrition; Z68.1 Body mass index [BMI] 19.9 or less, adult; I82.409 Acute embolism and thrombosis of unspecified deep veins of unspecified lower extremity; N93.9 Abnormal uterine and vaginal bleeding, unspecified; N17.0 Acute kidney failure with tubular necrosis; D63.8 Anemia in other chronic diseases classified elsewhere; F03.90 Unspecified dementia, unspecified severity, without behavioral disturbance, psychotic disturbance, mood disturbance, and anxiety; E03.9 Hypothyroidism, unspecified; Z20.822 Contact with and (suspected) exposure to COVID-19; R73.03 Prediabetes; Z66 Do not resuscitate; M79.641 Pain in right hand; M79.642 Pain in left hand; R55 Syncope and collapse; R79.89 Other specified abnormal findings of blood chemistry; Z93.6 Other artificial openings of urinary tract status; N18.31 Chronic kidney disease, stage 3a
CPT/HCPCS: 36415; 70450; 71045; 72125; 72170; 74176; 76775; 76856; 80048; 80053; 80061; 81001; 82962; 83036; 83605; 83735; 83880; 84443; 84484; 85014; 85018; 85025; 85610; 85730; 86850; 86900; 86901; 87086; 87088; 93005; 93306; 93886; 96365; 96375; G0378; J0696; J1450; J2250; J2405; J2704

== ENCOUNTER 2021-09-05 10:52 | Inpatient (IN) | payer MEDICARE, MEDICAID ==
[~2021-09-05] VITALS: Ht 152.4 cm; Wt 34.0 kg
[2021-09-05] MEDS ORDERED: SODIUM CHLORIDE 0.9% 500 ML IVB ONE (11:15)
[2021-09-05 11:33] LABS: Hematocrit 26.8 % (36.0-46.0); Hemoglobin 8.7 g/dL (12.2-16.2); Mean Corpuscular Hemoglobin 30.5 pg (28.0-32.0); Mean Corpuscular Hgb Conc. 32.4 g/dL (32.0-36.0); Red Blood Cells 2.85 10^6/uL (4.0-5.20); Red Cell Distribution Width 13.9 % (11.8-14.3); White Blood Cell 8.2 10^3/uL (4.4-10.8)
[2021-09-05 11:46] LABS: Basophils % (manual) 0 (0.0-2.0); Blast Cells 0; Metamyelocytes % 0; Myelocytes % 0; Promyelocytes % 0; Reactive Lymphocytes 0
[2021-09-05 11:57] LABS: Albumin 3.1 g/dL (3.4-5.0); Calcium 8.6 mg/dL (8.5-10.1)
[2021-09-05 12:00] LABS: Bilirubin, Total 0.3 mg/dL (0.2-1.0)
[2021-09-05 13:35] LABS: Band Neutrophils % (manual) 7; Eosinophils % (manual) 1 (0-7); Lymphocytes % (manual) 25 (10.0-50.0); Monocytes % (manual) 8 (0-12)
[2021-09-05 14:19] LABS: Urine Bacteria NONE SEEN /hpf (None Seen); Urine Blood 2+ /uL (Negative); Urine Specific Gravity 1.011 (1.001-1.035); Urine WBC 297 /hpf (0 - 5)
[2021-09-05] MEDS ORDERED: ACETAMINOPHEN 325 MG TAB PO PRN (17:15)
[2021-09-05] MEDS ORDERED: cefTRIAXone 1GM/50ML D5W 50 ML IV ONE (17:15)
[2021-09-05] MEDS ORDERED: ONDANSETRON HCL 4 MG/2 ML VIAL IV PRN (17:15)
[2021-09-05] MEDS ORDERED: HYDROcodone-ACET 5/325MG TAB PO PRN (17:15)
[2021-09-05] MEDS ORDERED: DOCUSATE SOD 100 MG CAP PO PRN (17:15)
[2021-09-05] MEDS ORDERED: LACTATED RINGER'S 1,000 ML IV ONE (17:15)
[2021-09-05 20:09] LABS: Creatinine, Urine 30 mg/dL (30.0-125.0); Sodium Urine 61 mmol/L (40-220)
[2021-09-05] MEDS: SODIUM CHLOR 0.9% PF (SALINE LOCK) 10ML VIAL/SYR IV SCH (22:17)
[2021-09-05] MEDS: MEMANTINE HCL 5 MG TAB PO SCH (22:20)
[2021-09-06] VITALS (8 sets, daily range): BP systolic 98–136; BP diastolic 55–77
[2021-09-06] MEDS: SODIUM CHLOR 0.9% PF (SALINE LOCK) 10ML VIAL/SYR IV SCH ×3 (06:17→22:02)
[2021-09-06] MEDS: LEVOTHYROXINE SODIUM 25 MCG TAB PO SCH (06:18)
[2021-09-06 07:06] LABS: RPR Non Reactive (Non Reactive)
[2021-09-06] MEDS: MEMANTINE HCL 5 MG TAB PO SCH ×2 (08:41→22:02)
[2021-09-06] MEDS ORDERED: cefTRIAXone 1GM/50ML D5W 50 ML IV ONE (13:30)
[2021-09-06] MEDS: SOD CHL 0.45% 1,000 ML IV SCH (17:24)
[2021-09-07 05:15] VITALS: BP 107/65
[2021-09-07] MEDS: SODIUM CHLOR 0.9% PF (SALINE LOCK) 10ML VIAL/SYR IV SCH ×2 (06:00→15:54)
[2021-09-07 06:12] LABS: BUN/Creatinine Ratio 27.2; Calcium 8.4 mg/dL (8.5-10.1); Potassium 4.2 mmol/L (3.5-5.1)
[2021-09-07] MEDS: LEVOTHYROXINE SODIUM 25 MCG TAB PO SCH (06:35)
[2021-09-07 08:00] VITALS: BP 136/60
[2021-09-07 08:38] VITALS: BP 119/59
[2021-09-07] MEDS ORDERED: cefTRIAXone 1GM/50ML D5W 50 ML IV SCH (09:00)
[2021-09-07] MEDS: SOD CHL 0.45% 1,000 ML IV SCH (09:24)
[2021-09-07] MEDS: MEMANTINE HCL 5 MG TAB PO SCH (09:25)
[2021-09-07 13:00] VITALS: BP 119/58
[2021-09-07] MEDS ORDERED: CEFU500T43 PO (14:23)
[2021-09-07 17:00] VITALS: BP 135/63
[2021-09-07 18:11] VITALS: BP 111/72
== END 2021-09-07 20:53 | disposition home or self-care (01) | DRG 689 ==
LOC: ER 10:52 → EDBD 10:52 → EDUNIT# 10:52 → OVERFLOW 17:10 → WEST WING 09-06 03:25
PROVIDERS: ADMIT Internal Medicine; ATTEND Internal Medicine
DX: N13.6 Pyonephrosis (principal); K85.90 Acute pancreatitis without necrosis or infection, unspecified; Z68.1 Body mass index [BMI] 19.9 or less, adult; Z20.822 Contact with and (suspected) exposure to COVID-19; E03.9 Hypothyroidism, unspecified; F03.90 Unspecified dementia, unspecified severity, without behavioral disturbance, psychotic disturbance, mood disturbance, and anxiety; N17.0 Acute kidney failure with tubular necrosis; R62.7 Adult failure to thrive; N18.4 Chronic kidney disease, stage 4 (severe); D63.8 Anemia in other chronic diseases classified elsewhere; Z93.6 Other artificial openings of urinary tract status
CPT/HCPCS: 36415; 74176; 76700; 80048; 80053; 81001; 82150; 82306; 82570; 82607; 83690; 84300; 84443; 84484; 85007; 85027; 86592; 87040; 93005; 96361; 96374; 97116; 97163; 97530; G0378; J0696